=== PATIENT | female | born 1935 | race Caucasian/White ===

== ENCOUNTER 2025-02-25 15:11 | Emergency (ER) | payer MEDICARE, OTHER, SELFPAY ==
[2025-02-25] MEDS: Etomidate 20 MG/10 ML VIAL 10 MG IVPUSH (15:20)
[2025-02-25] MEDS: Rocuronium Bromide 50 MG/5 ML VIAL IVPUSH (15:20)
--- NOTE | 2025-02-25 15:27 | ECG_ITS ---
Test Reason : carduiac arrest Blood Pressure : */* mmHG Vent. Rate : 87 BPM Atrial Rate : * BPM P-R Int : * ms QRS Dur : 164 ms QT Int : 406 ms P-R-T Axes : * 102 -44 degrees QTcB Int : 488 ms Atrial fibrillation Right bundle branch block Cannot rule out Inferior infarct , age undetermined Abnormal ECG No previous ECGs available Referred By: Sabine Oh Electronically Signed By: JAUN RICO
[2025-02-25 15:53] LABS: Hemoglobin 12.6 g/dl (12.0-16.0); Mean Corpuscular Hemoglobin 26.8 pg (27.0-33.0); Mean Corpuscular Volume 89.2 fL (80.0-98.0); Mean Platelet Volume 9.8 fL (9.4-12.3); NRBC Pct Auto 0.3 /100WBC (0.0-0.2); Platelet Count 342 X10*3/uL (160-400); Red Blood Count 4.71 X10*6/uL (4.20-5.50); Red Cell Distribution Width 14.2 % (11.0-16.0)
[2025-02-25 15:56] LABS: VBG Base Excess -2.4 mmol/L; VBG HCO3 22 mmol/L (22-26); VBG pCO2 40 mmHg; VBG pH 7.35 (7.32-7.43); VBG pO2 47 mmHg
[2025-02-25 16:08] LABS: WBC ABN SCTR FOR CBC 1
[2025-02-25 16:18] LABS: Alanine Aminotransferase 33 U/L (0-31); Albumin Level 3.3 g/dL (3.5-5.0); Alkaline Phosphatase 91 U/L (39-117); Anion Gap 22 (12-20); Aspartate Amino Transferase 53 U/L (5-31); Bilirubin Direct 0.2 mg/dL (0.0-0.5); Bilirubin Total 0.5 mg/dL (0.0-1.0); Blood Urea Nitrogen 15 mg/dL (9-16); Calcium 8.8 mg/dL (8.4-10.2); Carbon Dioxide 24 mmol/L (22-29); Chloride 93 mmol/L (96-108); Estimated Glomerular Filt Rate 52; Glucose Random 298 mg/dL (60-115); Lipase 15 U/L (8-78); Magnesium 2.3 mg/dL (1.6-2.6); Potassium 3.5 mmol/L (3.3-5.1); Sodium 135 mmol/L (135-145)
[2025-02-25 16:21] LABS: Troponin-I High Sensitivity 29.5 ng/L (<3.5-17.0)
--- NOTE | 2025-02-25 16:22 | PC.NURSE ---
LATE ENTRY: REPORT FROM EMS: Pt was a witnessened cardiac arrest at home by . Per EMS reports pt has weak heart and many medical conditions, was having SOB and then collapsed in front of - called for EMS. First responders arrived with CPR in progress, 1 shock by AED. EMS did approx 35 mins of CPR, Placed IGEL, 2 EPI, IO in left humerus. EMS got ROSC (not sure exactly what time), started NS and Dopamine drip (unsure about how much they gave). 1513: EMS ARRIVED- ROSC, IGEL IN PLACE WITH BVM, STABLE VITALS PER EMS 1515: POC 252 1518: BP 111/91, HR 92, RR 20 1518: IV PLACED IN R AC 18G 1520 ETOMIDATE 10 MG IVP & KOMAL 50 MG IVP 1521:INTUBATED 7.5 ETT 21 CM AT LIP BY MD GONZALEZ 1523: OG 16FR PLACED BY , TO INTERMITTENT SUCTION 1524: 1 AMP OF BICARB IVP 1524 BP 54/37. HR 78 1524: NOREPI START 0.05 MCG/KG/MIN 1530: PROPOFOL STARTED 30 MCG/KG/MIN 1534: NOREP INCREASED TO 0.09 PER 1534: HR 38, SPO2 58%, RR 18 VIA VENT 1534: PULSES LOST, PEA, CPR STARTED 1535: EPI 1MG IVP 1537: PULSE CHECK, NO PULSE, PEA, CPR CONTINUED 1537: AMIO 150 BOLUS DRIP STARTED PER 1539: PULSE CHECK, NO PULSE, PEA, CPR CONTINUED 1540: EPI 1MG IVP, CALCIUM 1G IVP 1541: PULSE CHECK, NO PULSE, PEA, CPR 1543: NO PULSE, EVENT CALLED/EVENT BY MD GONZALEZ. FAMILY REQUESTED TO STOP.
[2025-02-25 16:27] LABS: B Type Natriuretic Peptide 665 pg/mL (<100); Venous Blood Gas Refer to POC result
[2025-02-25 16:29] LABS: Band Neutrophils Percent 1 % (3-5); Eosinophils Percent Manual 1 % (0-4); Lymphocytes Percent Manual 17 % (20-40); Metamyelocytes Percent 1 %; Monocytes Percent Manual 5 % (2-11); Neutrophils Percent Manual 75 % (45-73)
[2025-02-25 16:30] LABS: Platelet Estimate NORMAL (NORMAL); Platelet Morphology Comment NORMAL; RBC Morphology NORMAL
--- NOTE | 2025-02-25 16:30 | PC.NURSE ---
NOT CT CASE Organ bank called by Sindhu GARDNER.
[2025-02-25 16:31] LABS: Eosinophils Absolute Manual 0.2 X10*3/uL (0.0-0.4); Lymphocytes Absolute Manual 2.9 X10*3/uL (1.2-4.9); Metamyelocytes Absolute 0.2 X10*3/uL; Monocytes Absolute Manual 0.8 X10*3/uL (0.1-1.2); Neutrophils Absolute Manual 12.8 X10*3/uL (2.0-8.3); White Blood Count 16.8 X10*3/uL (4.8-10.8)
--- NOTE | 2025-02-25 16:31 | PC.NURSE ---
Pt cleaned and placed in hospital clothing. Tubes and wires removed. Pts belongings placed in bag. PT HAS SILVER RING ON LEFT RING FINGER. FAMILY IN ROOM AT THIS TIME
[2025-02-25 16:34] VITALS: BMI 32.1
--- NOTE | 2025-02-25 16:43 | PC.NURSE ---
PTS FAMILY TOOK HOME PTS BELONGINGS AND PTS RING THAT SHE WAS WEARING. FAMILY IS UNSURE OF HOME AT THIS TIME.
--- NOTE | 2025-02-25 16:55 | ED.CPR ---
HPI - CPR General Chief Complaint: Cardiac Arrest/CPR Stated Complaint: CARDIAC ARREST PER EMS Source: EMS Mode of arrival: EMS Limitations: altered mental status (ongoing CPR) History of Present Illness ED Provider: LISA PIÑA narrative: 89 yo female with PMH of CHF, COPD who was at home and c/o feeling short of breath then collapsed in front of her . Bystander CPR started. 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 concrete float maker had ROSC but briefly. ALS team arrived - 2 epi, no amio, IVF, IO L shoulder, ROSC on arrival to ED - total CPR 35 min prehospital. Unclear of CODE status on arrival no MOLST form present. 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: Yes Shock advised: Yes Number of shocks delivered: 1 Initial findings in the field: unresponsive, no pulse and PEA ROSC in the field: Yes (x2 but brief) Associated injuries: No Associated symptoms: shortness of breath Known history of: other (CHF/COPD) Treatments prior to arrival: BMV, other airway device (Igel), chest compressions, defibrillated shocks # (1) and epinephrine mgs # (2) Related Data Allergies Allergy/AdvReac Type Severity Reaction Status Date / Time No Known Allergies Allergy Unverified 08/13/20 15:14 Review of Systems Review of Systems: ROS unable to be obtained due to ongoing CPR [facility] Past Medical History Attestation statement: The following information was validated with the patient. Source: old records reviewed Medical History COPD (chronic obstructive pulmonary disease) CHF (congestive heart failure) Social History Social History (Updated 02/25/25 @ 16:58 by Sabine Oh DO) Patient Tobacco Use Status: Tobacco use Unknown Advance Directives: No Advance Directives Information Provided: No Physical Exam Vital Signs: Vital Signs: BMI result Body Mass Index 32.1 Appearance: ongoing CPR severe distress Eyes: Pupils equal, round and reactive to light. ENT: Pharynx normal. atraumatic, blue purple lips Neck: Normal inspection. Neck supple. CVS: PE on monitor initial irregular rhythm with RBBB Respiratory: Initial spontaneous respirations though agonal then loss of resp drive Abdomen: Soft and non-tender. Skin: Skin warm and cool. pale and dusky Extremities: No lower extremity edema. Neuro: unresponsive, no pupil reflex, ongoing CPR Medications Administered Generic Name Dose Route Start Last Admin Trade Name Tony PRN Reason Stop Dose Admin Amiodarone HCl 900 mg/ Sodium 518 mls @ 34.533 mls/hr 02/25/25 15:30 02/25/25 16:33 Chloride IVCONT Not Given .Q15H1M ELLIOTT Protocol 1 MG/MIN Discontinued Medications Generic Name Dose Route Start Last Admin Trade Name Tony PRN Reason Stop Dose Admin Etomidate 10 mg 02/25/25 15:28 02/25/25 15:20 Etomidate 20 Mg/10 Ml Vial IVPUSH 02/25/25 15:29 10 mg ONCE ONE Administration Rocuronium [place] 50 mg 02/25/25 15:26 02/25/25 15:20 Rocuronium [place] 50 Mg/5 Ml Vial IVPUSH 02/25/25 15:27 50 mg ONCE ONE Administration Medical Decision Making Medical Decision Making [facility] Narrative: 89 yo female with PMH of COPD/CHF collapsed in front of family had ROSC in field lost pulse, ROSC on arrival to ED then became bradycardic and went into PEA arrest - after 4 cycles with epi, levophed drip, intubation, amio drip she had no cardiac activity on US and no pulses. Family notes she would have wanted to be DNR/DNI though no MOLST present and they asked we hold resuscitative efforts - time of 1543 Differential Diagnosis Differential Diagnoses: The differential diagnosis associated with the presentation includes cardiac arrest Admission/Observation Consideration of admission/observation: Escalation of care including admission/observation considered time of 1543 Lab Data [facility] Lab Attestation statement: I reviewed the patient's lab results. 02/25/25 15:37 02/25/25 15:37 Labs: Lab Results 02/25/25 02/25/25 Range/Units 15:37 15:50 WBC 16.8 H (4.8-10.8) X10*3/uL RBC 4.71 (4.20-5.50) X10*6/uL Hgb 12.6 (12.0-16.0) g/dl Hct 42.0 (37.0-47.0) % MCV 89.2 (80.0-98.0) fL MCH 26.8 L (27.0-33.0) pg MCHC 30.0 L (31.0-35.0) g/dl RDW 14.2 (11.0-16.0) % Plt Count 342 (160-400) X10*3/uL MPV 9.8 (9.4-12.3) fL Immature Gran % (Auto) Cancelled Neut % (Auto) Cancelled Lymph % (Auto) Cancelled Boyd % (Auto) Cancelled Eos % (Auto) Cancelled Baso % (Auto) Cancelled Lymph # (Auto) Cancelled Boyd # (Auto) Cancelled Eos # (Auto) Cancelled Baso # (Auto) Cancelled Abs Immat Gran (auto) Cancelled Absolute Neuts (auto) Cancelled Absolute Nucleated RBC 0.050 H (0.0-0.012) X10*3/uL Nucleated RBC % (auto) 0.3 H (0.0-0.2) /100WBC Neutrophils % (Manual) 75 H (45-73) % Band Neutrophils % 1 L (3-5) % Lymphocytes % (Manual) 17 L (20-40) % Monocytes % (Manual) 5 (2-11) % Eosinophils % (Manual) 1 (0-4) % Metamyelocytes % 1 % Abs Neuts (Manual) 12.8 H (2.0-8.3) X10*3/uL Lymphocytes # (Manual) 2.9 (1.2-4.9) X10*3/uL Monocytes # (Manual) 0.8 (0.1-1.2) X10*3/uL Eosinophils # (Manual) 0.2 (0.0-0.4) X10*3/uL Metamyelocytes # 0.2 X10*3/uL Platelet Estimate NORMAL (NORMAL) Plt Morphology Comment NORMAL RBC Morphology NORMAL VBG pH 7.35 (7.32-7.43) VBG pCO2 40 mmHg VBG pO2 47 mmHg VBG HCO3 22 (22-26) mmol/L VBG O2 Saturation 73.0 % VBG Base Excess -2.4 mmol/L Sodium 135 (135-145) mmol/L Potassium 3.5 (3.3-5.1) mmol/L Chloride 93 L (96-108) mmol/L Carbon Dioxide 24 (22-29) mmol/L Anion Gap 22 H (12-20) BUN 15 (9-16) mg/dL Creatinine 1.00 (0.5-1.4) mg/dL Estim Creat Clear Calc TNP Estimated GFR 52 Random Glucose 298 H (60-115) mg/dL Calcium 8.8 (8.4-10.2) mg/dL Magnesium 2.3 (1.6-2.6) mg/dL Total Bilirubin 0.5 (0.0-1.0) mg/dL Direct Bilirubin 0.2 (0.0-0.5) mg/dL AST 53 H (5-31) U/L ALT 33 H (0-31) U/L Alkaline Phosphatase 91 (39-117) U/L Troponin I High Sens 29.5 H (<3.5-17.0) ng/L B-Natriuretic Peptide 665 H (<100) pg/mL Total Protein 6.0 L (6.5-8.0) g/dL Albumin 3.3 L (3.5-5.0) g/dL Lipase 15 (8-78) U/L Independent Interpretation I performed an independent interpretation of an: EKG Interpretation: Rate: 87 Rhythm: irregular [place]: rightwards RBBB ST T wave : deep t waves anterior leads and lateral leads ST depressions qTC: 488 prior studies: no obvious STEMI The study has been interpreted contemporaneously by me. . Procedures Procedure Narrative Procedure Narrative: bedside cardiac echo no cardiac activity noted pupils fixed no corneal reflex no response to pain no spontaneous breathing time of 1543 Critical Care Time Critical Care Time Critical Care Time: Yes Total Critical Care Time: 35 Attestation: management post ROSC, family discussion I attest to this time spent taking care of the patient Discharge Plan Discharge Clinical Impression: Cardiac arrest Patient Disposition: Date/Time: 02/25/25 15:43
--- OUTSIDE RECORDS SUMMARY | 2025-02-25 18:39 | XMS_ITS ---
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 Generated for Sunny barry/Eileen/eTransmitting on:?02/25/2025 06:38 PM EDT
--- OUTSIDE RECORDS SUMMARY | 2025-02-25 18:39 | XMS_ITS | Clinical Summary ---
Author Organization [facility] Address [address] [place] [address] Care Team Providers Care Snag Grinder Name Role Phone Unavailable Primary Care Provider Unavailabl e Allergies Active Allergy Reactions Criticality Noted Date Comments Granite Tar Extract 03/30/2018 Medications Medication Sig Dispensed Refills Start Date End Date Status Aspirin (ASPIR-81 PO) Take by mouth. 0 Active Tiotropium [place] Monohydrate (SPIRIVA HANDIHALER IN) Inhale into the lungs. 0 Active furosemide (LASIX) 20 MG tablet Take 20 mg by mouth 2 (two) times a day. 0 Active metoprolol succinate (TOPROL-XL) 24 hr tablet 25 mg Take by mouth daily. 0 Active spironolactone (ALDACTONE) tablet 25 mg Take 25 mg by mouth daily. 0 Active Umeclidinium-Vilanterol (ANORO ELLIPTA) 62.5-25 MCG/INH AEPB Inhale into the lungs. 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 Social History Tobacco Use Types Packs/Day Years Used Date Smoking Tobacco: Never Assessed Sex and Gender Information Value Date Recorded Sex Assigned at Not on file Gender Identity Not on file Sexual Orientation Not on file Last Filed Vital Signs Vital Sign Reading Time Taken Comments Blood Pressure 155/72 03/29/2019 1:52 PM EDT Pulse 85 03/29/2019 1:52 PM EDT Temperature - - Respiratory Rate - - Oxygen Saturation 93% 03/29/2019 1:52 PM EDT Inhaled Oxygen Concentration - - Weight 96.6 kg (213 lb) 03/29/2019 1:52 PM EDT Height 167.6 cm (5' 6 ) 03/29/2019 1:52 PM EDT Body Mass Index 34.38 03/29/2019 1:52 PM EDT Plan of Treatment Health Maintenance Due Date Last Done Comments COVID-19 Vaccine (#1) 1941 Depression Screening 1948 Preventative Health Evaluation 1954 Shingrix-Zoster Vaccine (1 o f 2) 1955 Fall Risk Assessment 2001 Osteoporosis Screening (DEXA Scan) 2001 DTap / Tdap / Td (1 - Tdap) 08/07/201007/28, 07/03/2000 RSV Adult > 60+ Yrs or (1 - 1-dose 75+ series) 2011 Influenza Vaccine (#1) 2024 08/11/2009 Pneumococcal Vaccine Completed 08/11/2015, 07/14/2008 Hepatitis B Vaccines Aged Out No long er eligible based on patient's age to complete this topic RSV Ped < 20 months Aged Out No longe r eligible based on patient's age to complete this topic
--- OUTSIDE RECORDS SUMMARY | 2025-02-25 18:39 | XMS_ITS | Data Portability ---
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 Plan of Treatment Reminders Order Date Submit Date Provider Last Modified By Organization Details Last Modified Time Details Appointments None recorde d. Lab lipid panel, serum 2017 018 abolcun Not available 9 10:53:31 CMP, serum or plasma 2017 018 abolcun Not available 9 10:53:31 HbA1c (hemogl obin A1c), blood 2017 018 abolcun Not available 9 10:53:31 TSH + T4, serum 2017 018 abolcun Not available 9 10:53:31 vitamin D, 25-hydr oxy, total, serum 2017 018 abolcun Not available 9 10:53:31 HbA1c (hemogl obin A1c), blood 2017 018 MELOYD Not available 8 21:26:14 BMP, serum or plasma 2017 018 MELODY Not available 8 20:34:49 microal bumin, urine 2017 018 MELODY Not available 8 20:11:28 CBC w/ diff 2017 018 abolcun Not available 8 09:52:19 BMP, serum or plasma 2016 017 MELODY Not available 7 23:27:11 BMP, serum or plasma 2015 016 MELODY Not available 6 20:34:20 Referral physica l therapi st referra l - At risk for falling 2017 018 [email or web address] [facility], [address], [place], [address], 8 15:39:25 nutriti onist/d ietitia n referra l 2017 018 [email or web address] Not available 8 15:39:01 pulmono logist referra l - pt has stable COPD/ stable oximetr y over past few years. I encoura ged pt to get flu shots but she decline s today 2017 018 rohith Lewis MD, [address] [place], [address], 8 11:10:16 physiat ry referra l - Pt prefers to see physiat ry for left shoulde r pain/ radiate s to left hand. Pt may need injecti on and possibl e MRI to eval patholo gy. Pt is very relucta nt to conside r surgery . 2016 017 rohith Jarrett MD, [address] [place], [address], 7 10:18:10 pulmono logist referra l - pt has mild COPD/ control led on Spiriva . Most likely pt will need to do Pulm Rehab/p t needs recheck of her PFTs and prob repeat CXR 2016 017 [email or web address] Ross Lewis MD, [address] [facility], [place], [address], 7 17:06:41 physiat ry referra l - pt has radiati ng pain from knee to hip/lum bar area and numbnes s down left thigh. pt could not tolerat e MRI due to pain. Not sure how to eval for radicul opathy 2015 016 [id number] Fermin Jarrett MD, [address] [place], [address], 6 04:31:53 renal consult - resista nt htn, hyponat remia 2015 016 [facility], [address], [address], [place], [address], 6 16:21:21 Procedures None recorde d. Surgeries None recorde d. Imaging US, thyroid - Dominan t L> thyroid nodule about 3 cm f/u ultraso und. 2017 018 [facility] ([facility]), [address], [place], [address], 8 18:18:40 US, abdomin al aorta - 3.[address] from 2013. 2017 018 [facility] ([facility]), [address], [place], [address], 8 14:41:01 Medication Orders Spiriva with HandiHa ler 18 mcg and inhalat ion capsule s 2017 018 INTERFACE [facility], [facility], [place], [address], 8 13:22:04 ProAir HFA 90 mcg/act uation aerosol inhaler [address] [id number], [address] [place] [address], [place], [id number], 0 15:29:37 diclofe nac sodium 75 mg tablet, delayed release 2015 016 [email or web address] [id number], [address] [facility] [place], [address], 7 13:02:37 metopro lol succina te ER 25 mg tablet, extende d release 24 hr 2015 016 [id number] [facility], [address] [place] [address], [address], 6 04:31:53 metopro lol tartrat e 25 mg tablet 2015 016 [email or web address] [facility] #[id number], [address] [facility] [place], [address], 7 13:21:54 Lasix 20 mg tablet 2015 016 [email or web address] [facility], [address] [place] [address], [address], 9 09:22:02 candesa rtan 32 mg tablet 2015 016 [email or web address], [address] [place] [address], [address], 7 13:02:27 Patient Targets Encounter Date Encounter Id Patient Goals Patient Target Last Modified By Organization Details Last Modified Time 07/11/2018 [id number] [facility] goal of Blood Pressure 140 / 90 Not available Not available Not available manager terminal goal of Exercise level Not available Not available Not available [facility] goal of Tobacco Smoking Status Not available Not available Not available [facility] goal of Excess Body Weight Loss % 5 Not available Not available Not available Pt advised and agrees to eat a low salt low fat diet; to do moderate exercise (such as walking) 150 minutes per week; to limit alcohol intake (goal of 2 drinks per day or less for men or 1 for woman). and to monitor dietary sodium. Will monitor home blood pressures and bring readings to appointments. Patient preferences and goals incorporated in plan and updated/modifie d as needed to reflect progress toward goal.Pt advised and agrees to work on self-monitoring behaviors; begin an appropriate diet for weight loss (such as a low carbohydrate diet), to do moderate exercise (such as walking) for approximately 150 minutes per week; and to identify desirable and timely rewards that will reinforce achievement of specific weight loss goals. Not available 07/11/2018 14:37:53 Patient Instructions Encounter Date Encounter Id Patient Instructions Last Modified By Organization Details Last Modified Time 07/21/2016 [id number] rec. laxaclear (generic for miralax at [employer] - similar at 's) 1/2 - 1 scoop in 8 oz. of any fluid 1-2x/daily. ??rec. eat less bananas and drink more water. ??use senna prn. stop aleve. ??rather take tylenol 500mg 2 tabs 3x/day [email or web address] Not available 07/21/2016 19:17:41 I have reviewed the note and agree with the assessment and plan of care. [email or web address] Not available 07/21/2016 19:17:41 08/18/2016 [id number] Medications (OTC, herbal therapies, supplements) reviewed and reconciled with patient and or caregiver, including potential side effects, drug interactions, instructions, and the consequences of not taking medication. Reviewed potential barriers to medication adherence, such as side effects from medication or cost of medication. [email or web address] Not available 08/18/2016 12:02:27 07/11/2017 [id number] preventing falls: care instructions [email or web address] Not available 07/14/2017 15:02:21 fair control of HTN. BP not at goal, continue current medication regimen. Low NA diet, regular exercise and weight loss encouraged. [email or web address] Not available 07/11/2017 13:18:26 01/09/2018 [id number] learning about copd and how to prevent lung infections mdalessandro Not available 01/09/2018 13:29:43 07/11/2018 [id number] prediabetes: care instructions Not available 07/11/2018 13:57:58 preventing falls: care instructions Not available 07/11/2018 13:22:02 medicare preventive services guide (female 74yrs and under) Not available 07/11/2018 13:22:02 starting a weight loss plan: care instructions clarence Not available 07/11/2018 15:06:18 Nutrition Referral and Weight Management Follow-up Information clarence Not available 07/11/2018 15:06:18 I have reviewed the note and agree with the assessment and plan of care. 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 pt could not tolerate MRI due to pain. Not sure how to eval for radiculopathy Referring Physician: Nabil Umana, Internal Medicine, Encounter Date: 08/18/2016 Physiatry Referral for Shoul frank joint pain Pt prefers to see physiatry for left shoulder pain/ radiates to left hand. Pt may need injection and possible MRI to eval pathology. Pt is very reluctant to consider surgery. Referring Physician: Nabil Umana, Internal Medicine, Encounter Date: 07/11/2017 Open Hearth Worker Referral for C hronic obstructive pulmonary disease pt has mild COPD/ controlled on Spiriva. Most likely pt will need to do Pulm Rehab/pt needs recheck of her PFTs and prob repeat CXR Referring Physician: Nabil Umana, Internal Medicine, Encounter Date: 07/11/2017 Open Hearth Worker Referral for C hronic obstructive pulmonary disease pt has stable COPD/ stable oximetry over past few years. I encouraged pt to get flu shots but she declines today Referring Physician: Nabil Umana, Internal Medicine, Encounter Date: 01/09/2018 Physical Therapist Referral for Adult health examination At risk for falling Referring Physician: Beverly Hardin, Internal Medicine, Encounter Date: 07/11/2018 Consultant Intern/dietitian Refer ral for Body mass index 30+ - obesity Referring Physician: Beverly Hardin, Internal Medicine, Encounter Date: 07/11/2018 Results Created Date Observation Date Name Description Value Unit Range Abnormal Flag Note LastModifiedBy Organization Detail LastModifiedTime 07/14/2007/14/2016 BMP, serum or plasm a glucose 98 mg/dL (70-99 ) Not Available [facility] (Centralized Electronic Ordering - All Locations) Patient Can Go To The Location Of Their Choice, 07/14/2016 20:30:39 07/14/2007/14/2016 BMP, serum or plasm a BUN 10 mg/dL (8-23) Not Available [facility] (Centralized Electronic Ordering - All Locations) Patient Can Go To The Location Of Their Choice, 07/14/2016 20:30:39 07/14/2007/14/2016 BMP, serum or plasm a creatinine 0.8 mg/dL (0.5-1 .0) Not Available [facility] (Centralized Electronic Ordering - All Locations) Patient Can Go To The Location Of Their Choice, 07/14/2016 20:30:39 07/14/2007/14/2016 BMP, serum or plasm a sodium 127 mmol/ L (133-1 45) low Not Available [facility] (Centralized Electronic Ordering - All Locations) Patient Can Go To The Location Of Their Choice, 07/14/2016 20:30:39 07/14/2007/14/2016 BMP, serum or plasm a potassium 5.0 mmol/ L (3.6-5 .2) Not Available [facility] (Centralized Electronic Ordering - All Locations) Patient Can Go To The Location Of Their Choice, 07/14/2016 20:30:39 07/14/2007/14/2016 BMP, serum or plasm a chloride 87 mmol/ L (98-10 7) low Not Available [facility] (Centralized Electronic Ordering - All Locations) Patient Can Go To The Location Of Their Choice, 07/14/2016 20:30:39 07/14/2007/14/2016 BMP, serum or plasm a bicarbonate 26 mmol/ L (22-29 ) Not Available [facility] (Centralized Electronic Ordering - All Locations) Patient Can Go To The Location Of Their Choice, 07/14/2016 20:30:39 07/14/20 16 07/14/2016 BMP, serum or plasm a anion gap 14 (4-17) Not Available [facility] (Centralized Electronic Ordering - All Locations) Patient Can Go To The Location Of Their Choice, 07/14/2016 20:30:39 07/14/20 16 07/14/2016 BMP, serum or plasm a calcium 9.6 mg/dL (8.6-1 0.5) Not Available [facility] (Centralized Electronic Ordering - All Locations) Patient Can Go To The Location Of Their Choice, 07/14/2016 20:30:39 07/14/20 16 07/14/2016 BMP, serum or plasm a est GFR non 70 mL/mi n/1.7 3_M2 Effec tive Augus t 2015, [facility] have locke ed the equat ion used to calcu late creat inine based estim ated glome rular filtr ation rate (eGFR ) from the Modif icati on of Diet in Renal Disea se (MDRD ) to the Chron ic Kidne y Disea se Epide miolo gy Colla borat ion (CKD- EPI). With the use of CKD-E PI equat ion, eGFR value s over 60 mL/mi n/1.7 3 m2 are repor ruby and eGFR is calcu lated for patie nts > EQ 18 years old. The CKD-E PI creat inine equat ion has not been valid ated in child katelyn (<18 years ), pregn ant women , in some racia l or ethni c subgr oups other than Cauca sians and Afric an Ameri cans. Not Available [facility] (Centralized Electronic Ordering - All Locations) Patient Can Go To The Location Of Their Choice, 07/14/2016 20:30:39 07/14/2007/14/2016 BMP, serum or plasm a est GFR 81 mL/mi n/1.7 3_M2 Effec tive Augus t 2015, [facility], [facility] have locke ed the equat ion used to calcu late creat inine based estim ated glome ednar filtr ation rate (eGFR ) from the Modif icati on of Diet in Renal Disea se (MDRD ) to the Chron ic Kidne y Disea se Epide miolo gy Colla borat ion (CKD- EPI). With the use of CKD-E PI equat ion, eGFR value s over 60 mL/mi n/1.7 3 m2 are repor ruby and eGFR is calcu lated for patie nts > EQ 18 years old. The CKD-E PI creat inine equat ion has not been valid ated in child katelyn (<18 years ), pregn ant women , in some racia l or ethni c subgr oups other than Cauca sians and Afric an Ameri cans. Not Available [facility] (Centralized Electronic Ordering - All Locations) Patient Can Go To The Location Of Their Choice, 07/14/2016 20:30:39 07/21/2007/21/2016 BMP, serum or plasm a glucose 94 mg/dL (70-99 ) Not Available [facility] (Centralized Electronic Ordering - All Locations) Patient Can Go To The Location Of Their Choice, 07/21/2016 20:34:20 07/21/2007/21/2016 BMP, serum or plasm a BUN 12 mg/dL (8-23) Not Available [facility] (Centralized Electronic Ordering - All Locations) Patient Can Go To The Location Of Their Choice, 07/21/2016 20:34:20 07/21/2007/21/2016 BMP, serum or plasm a creatinine 0.8 mg/dL (0.5-1 .0) Not Available [facility] (Centralized Electronic Ordering - All Locations) Patient Can Go To The Location Of Their Choice, 07/21/2016 20:34:20 07/21/2007/21/2016 BMP, serum or plasm a sodium 133 mmol/ L (133-1 45) Not Available [facility] (Centralized Electronic Ordering - All Locations) Patient Can Go To The Location Of Their Choice, 07/21/2016 20:34:20 07/21/2007/21/2016 BMP, serum or plasm a potassium 5.3 mmol/ L (3.6-5 .2) high Not Available [facility] (Centralized Electronic Ordering - All Locations) Patient Can Go To The Location Of Their Choice, 07/21/2016 20:34:20 07/21/2007/21/2016 BMP, serum or plasm a chloride 93 mmol/ L (98-10 7) low Not Available [facility] (Centralized Electronic Ordering - All Locations) Patient Can Go To The Location Of Their Choice, 07/21/2016 20:34:20 07/21/2007/21/2016 BMP, serum or plasm a bicarbonate 26 mmol/ L (22-29 ) Not Available [facility] (Centralized Electronic Ordering - All Locations) Patient Can Go To The Location Of Their Choice, 07/21/2016 20:34:20 07/21/2007/21/2016 BMP, serum or plasm a anion gap 14 (4-17) Not Available [facility] (Centralized Electronic Ordering - All Locations) Patient Can Go To The Location Of Their Choice, 07/21/2016 20:34:20 07/21/2007/21/2016 BMP, serum or plasm a calcium 9.5 mg/dL (8.6-1 0.5) Not Available [facility] (Centralized Electronic Ordering - All Locations) Patient Can Go To The Location Of Their Choice, 07/21/2016 20:34:20 07/21/2007/21/2016 BMP, serum or plasm a est GFR non 70 mL/mi n/1.7 3_M2 Effec tive Augus t 2015, [facility], [facility] and [place] have locke ed the equat ion used to calcu late creat inine based estim ated glome rular filtr ation rate (eGFR ) from the Modif icati on of Diet in Renal Disea se (MDRD ) to the Chron ic Kidne y Disea se Epide miolo gy Colla borat ion (CKD- EPI). With the use of CKD-E PI equat ion, eGFR value s over 60 mL/mi n/1.7 3 m2 are repor ruby and eGFR is calcu lated for patie nts > EQ 18 years old. The CKD-E PI creat inine equat ion has not been valid ated in child katelyn (<18 years ), pregn ant women , in some racia l or ethni c subgr oups other than Cauca sians and Afric an Ameri cans. Not Available [facility] (Centralized Electronic Ordering - All Locations) Patient Can Go To The Location Of Their Choice, 07/21/2016 20:34:20 07/21/20 16 07/21/2016 BMP, serum or plasm a est GFR 81 mL/mi n/1.7 3_M2 Effec tive Augus t 2015, [facility], [facility] have locke ed the equat ion used to calcu late creat inine based estim ated glome rular filtr ation rate (eGFR ) from the Modif icati on of Diet in Renal Disea se (MDRD ) to the Chron ic Kidne y Disea se Epide miolo gy Colla borat ion (CKD- EPI). With the use of CKD-E PI equat ion, eGFR value s over 60 mL/mi n/1.7 3 m2 are repor ruby and eGFR is calcu lated for patie nts > EQ 18 years old. The CKD-E PI creat inine equat ion has not been valid ated in child katelyn (<18 years ), pregn ant women , in some racia l or ethni c subgr oups other than Cauca sians and Afric an Ameri cans. Not Available [facility] (Centralized Electronic Ordering - All Locations) Patient Can Go To The Location Of Their Choice, 07/21/2016 20:34:20 07/11/2007/11/2017 BMP, serum or plasm a glucose 104 mg/dL (70-99 ) high Not Available [facility] (Centralized Electronic Ordering - All Locations) Patient Can Go To The Location Of Their Choice, 07/11/2017 23:27:11 07/11/2007/11/2017 BMP, serum or plasm a BUN 10 mg/dL (8-23) Not Available [facility] (Centralized Electronic Ordering - All Locations) Patient Can Go To The Location Of Their Choice, 07/11/2017 23:27:11 07/11/2007/11/2017 BMP, serum or plasm a creatinine 0.8 mg/dL (0.5-1 .0) Not Available [facility] (Centralized Electronic Ordering - All Locations) Patient Can Go To The Location Of Their Choice, 07/11/2017 23:27:07/11/2007/11/2017 BMP, serum or plasm a sodium 137 mmol/ L (133-1 45) Not Available [facility] (Centralized Electronic Ordering - All Locations) Patient Can Go To The Location Of Their Choice, 07/11/2017 23:27:07/11/2007/11/2017 BMP, serum or plasm a potassium 4.9 mmol/ L (3.6-5 .2) Not Available [facility] (Centralized Electronic Ordering - All Locations) Patient Can Go To The Location Of Their Choice, 07/11/2017 23:27:07/11/2007/11/2017 BMP, serum or plasm a chloride 95 mmol/ L (98-10 7) low Not Available [facility] (Centralized Electronic Ordering - All Locations) Patient Can Go To The Location Of Their Choice, 07/11/2017 23:27:07/11/2007/11/2017 BMP, serum or plasm a bicarbonate 26 mmol/ L (22-29 ) Not Available [facility] (Centralized Electronic Ordering - All Locations) Patient Can Go To The Location Of Their Choice, 07/11/2017 23:27:07/11/2007/11/2017 BMP, serum or plasm a anion gap 16 (4-17) Not Available [facility] (Centralized Electronic Ordering - All Locations) Patient Can Go To The Location Of Their Choice, 07/11/2017 23:27:07/11/2007/11/2017 BMP, serum or plasm a calcium 9.5 mg/dL (8.6-1 0.5) Not Available [facility] (Centralized Electronic Ordering - All Locations) Patient Can Go To The Location Of Their Choice, 07/11/2017 23:27:07/11/2007/11/2017 BMP, serum or plasm a est GFR non 70 mL/mi n/1.7 3_M2 The CKD-E PI creat inine equat ion has not been valid ated in child katelyn (<18 years ), pregn ant women , in some racia l or ethni c subgr oups other than Cauca sians and Afric an Ameri cans. Not Available [facility] (Centralized Electronic Ordering - All Locations) Patient Can Go To The Location Of Their Choice, 07/11/2017 23:27:11 07/11/20 17 07/11/2017 BMP, serum or plasm a est GFR 81 mL/mi n/1.7 3_M2 The CKD-E PI creat inine equat ion has not been valid ated in child katelyn (<18 years ), pregn ant women , in some racia l or ethni c subgr oups other than Cauca sians and Afric an Ameri cans. Not Available [facility] (Centralized Electronic Ordering - All Locations) Patient Can Go To The Location Of Their Choice, 07/11/2017 23:27:11 01/31/20 18 01/30/2018 CBC w/ auto diff WBC 8.8 K/mm3 (4.0-1 1.0) Not Available [facility] (Centralized Electronic Ordering - All Locations) Patient Can Go To The Location Of Their Choice, [id number] 01/30/2018 19:27:08 01/31/20 18 01/30/2018 CBC w/ auto diff RBC 5.16 M/mm3 (4.20- 5.40) Not Available [facility] (Centralized Electronic Ordering - All Locations) Patient Can Go To The Location Of Their Choice, [id number] 01/30/2018 19:27:08 01/31/20 18 01/30/2018 CBC w/ auto diff HGB 14.7 gm/dL (12.0- 16.0) Not Available [facility] (Centralized Electronic Ordering - All Locations) Patient Can Go To The Location Of Their Choice, [id number] 01/30/2018 19:27:08 01/31/20 18 01/30/2018 CBC w/ auto diff HCT 47.1 % (37.0- 47.0) high Not Available [facility] (Centralized Electronic Ordering - All Locations) Patient Can Go To The Location Of Their Choice, [id number] 01/30/2018 19:27:08 01/31/20 18 01/30/2018 CBC w/ auto diff MCV 91.3 fL (80.0- 100.0) Not Available [facility] (Centralized Electronic Ordering - All Locations) Patient Can Go To The Location Of Their Choice, 01/30/2018 19:27:08 01/31/2001/30/2018 CBC w/ auto diff MCH 28.5 pg (27.0- 34.0) Not Available [facility] (Centralized Electronic Ordering - All Locations) Patient Can Go To The Location Of Their Choice, 01/30/2018 19:27:01/31/2001/30/2018 CBC w/ auto diff MCHC 31.2 g/dL (33.0- 37.0) low Not Available [facility] (Centralized Electronic Ordering - All Locations) Patient Can Go To The Location Of Their Choice, 01/30/2018 19:27:01/31/2001/30/2018 CBC w/ auto diff plt 381 K/mm3 (150-4 60) Not Available [facility] (Centralized Electronic Ordering - All Locations) Patient Can Go To The Location Of Their Choice, 01/30/2018 19:27:01/31/2001/30/2018 CBC w/ auto diff RDW-SD 45.0 fL (<47.0 ) Not Available [facility] (Centralized Electronic Ordering - All Locations) Patient Can Go To The Location Of Their Choice, 01/30/2018 19:27:01/31/2001/30/2018 CBC w/ auto diff MPV 9.9 fL (9.4-1 2.4) Not Available [facility] (Centralized Electronic Ordering - All Locations) Patient Can Go To The Location Of Their Choice, 01/30/2018 19:27:01/31/2001/30/2018 CBC w/ auto diff automated NRBC 0.0 #/100 _WBC' s Not Available [facility] (Centralized Electronic Ordering - All Locations) Patient Can Go To The Location Of Their Choice, 01/30/2018 19:27:01/31/2001/30/2018 CBC w/ auto diff abs. NRBC 0.0 K/mm3 Not Available [facility] (Centralized Electronic Ordering - All Locations) Patient Can Go To The Location Of Their Choice, 01/30/2018 19:27:08 01/31/2001/30/2018 CBC w/ auto diff neut # 4.5 K/mm3 (1.3-7 .0) Not Available [facility] (Centralized Electronic Ordering - All Locations) Patient Can Go To The Location Of Their Choice, 01/30/2018 19:27:08 01/31/2001/30/2018 CBC w/ auto diff lymph # 3.3 K/mm3 (0.8-3 .1) high Not Available [facility] (Centralized Electronic Ordering - All Locations) Patient Can Go To The Location Of Their Choice, 01/30/2018 19:27:08 01/31/2001/30/2018 CBC w/ auto diff mono# 0.7 K/mm3 (0.4-0 .9) Not Available [facility] (Centralized Electronic Ordering - All Locations) Patient Can Go To The Location Of Their Choice, 01/30/2018 19:27:08 01/31/2001/30/2018 CBC w/ auto diff eo # 0.2 K/mm3 (0.0-0 .4) Not Available [facility] (Centralized Electronic Ordering - All Locations) Patient Can Go To The Location Of Their Choice, 01/30/2018 19:27:08 01/31/2001/30/2018 CBC w/ auto diff baso # 0.1 K/mm3 (0.0-0 .1) Not Available [facility] (Centralized Electronic Ordering - All Locations) Patient Can Go To The Location Of Their Choice, 01/30/2018 19:27:08 01/31/2001/30/2018 CBC w/ auto diff abs. imm gran 0.0 K/mm3 Not Available [facility] (Centralized Electronic Ordering - All Locations) Patient Can Go To The Location Of Their Choice, 01/30/2018 19:27:08 01/31/2001/30/2018 CBC w/ auto diff neut 51.3 % (44-76 ) Not Available [facility] (Centralized Electronic Ordering - All Locations) Patient Can Go To The Location Of Their Choice, 01/30/2018 19:27:08 01/31/2001/30/2018 CBC w/ auto diff lymph 37.7 % (15-43 ) Not Available [facility] (Centralized Electronic Ordering - All Locations) Patient Can Go To The Location Of Their Choice, 01/30/2018 19:27:08 01/31/20 18 01/30/2018 CBC w/ auto diff monocyte 7.9 % (4.5-1 0.5) Not Available [facility] (Centralized Electronic Ordering - All Locations) Patient Can Go To The Location Of Their Choice, [id number] 01/30/2018 19:27:08 01/31/20 18 01/30/2018 CBC w/ auto diff eo 2.2 % (0-6) Not Available [facility] (Centralized Electronic Ordering - All Locations) Patient Can Go To The Location Of Their Choice, [id number] 01/30/2018 19:27:08 01/31/20 18 01/30/2018 CBC w/ auto diff baso 0.7 % (0-2) Not Available [facility] (Centralized Electronic Ordering - All Locations) Patient Can Go To The Location Of Their Choice, [id number] 01/30/2018 19:27:08 01/31/20 18 01/30/2018 CBC w/ auto diff imm gran 0.2 % (0.0-0 .6) Not Available [facility] (Centralized Electronic Ordering - All Locations) Patient Can Go To The Location Of Their Choice, [id number] 01/30/2018 19:27:08 01/31/20 18 01/30/2018 micro album in, urine micro-albumi n <6.0 mg/L (0-20) Not Available [facility] (Centralized Electronic Ordering - All Locations) Patient Can Go To The Location Of Their Choice, 01/30/2018 20:11:28 01/31/20 18 01/30/2018 micro album in, urine malb/creat ratio <10.4 mg/gm (0-20) Micro album in less than detec tion limit , ratio estim ated using micro album in equal to 6.0 mg/L. Not Available [facility] (Centralized Electronic Ordering - All Locations) Patient Can Go To The Location Of Their Choice, 01/30/2018 20:11:28 01/31/20 18 01/30/2018 micro album in, urine urine creat for micro albumin 57.5 mg/dL Not Available [facility] (Centralized Electronic Ordering - All Locations) Patient Can Go To The Location Of Their Choice, [id number] 01/30/2018 20:11:28 01/31/2001/30/2018 BMP, serum or plasm a glucose 108 mg/dL (70-99 ) high Not Available [facility] (Centralized Electronic Ordering - All Locations) Patient Can Go To The Location Of Their Choice, 01/30/2018 20:34:49 01/31/2001/30/2018 BMP, serum or plasm a BUN 11 mg/dL (8-23) Not Available [facility] (Centralized Electronic Ordering - All Locations) Patient Can Go To The Location Of Their Choice, 01/30/2018 20:34:49 01/31/2001/30/2018 BMP, serum or plasm a creatinine 0.8 mg/dL (0.5-1 .0) Not Available [facility] (Centralized Electronic Ordering - All Locations) Patient Can Go To The Location Of Their Choice, 01/30/2018 20:34:49 01/31/2001/30/2018 BMP, serum or plasm a sodium 137 mmol/ L (133-1 45) Not Available [facility] (Centralized Electronic Ordering - All Locations) Patient Can Go To The Location Of Their Choice, 01/30/2018 20:34:49 01/31/2001/30/2018 BMP, serum or plasm a potassium 4.6 mmol/ L (3.6-5 .2) Not Available [facility] (Centralized Electronic Ordering - All Locations) Patient Can Go To The Location Of Their Choice, 01/30/2018 20:34:49 01/31/2001/30/2018 BMP, serum or plasm a chloride 95 mmol/ L (98-10 7) low Not Available [facility] (Centralized Electronic Ordering - All Locations) Patient Can Go To The Location Of Their Choice, 01/30/2018 20:34:49 01/31/2001/30/2018 BMP, serum or plasm a bicarbonate 28 mmol/ L (22-29 ) Not Available [facility] (Centralized Electronic Ordering - All Locations) Patient Can Go To The Location Of Their Choice, 01/30/2018 20:34:49 01/31/2001/30/2018 BMP, serum or plasm a anion gap 14 (4-17) Not Available [facility] (Centralized Electronic Ordering - All Locations) Patient Can Go To The Location Of Their Choice, 01/30/2018 20:34:49 01/31/20 18 01/30/2018 BMP, serum or plasm a calcium 9.5 mg/dL (8.6-1 0.5) Not Available [facility] (Centralized Electronic Ordering - All Locations) Patient Can Go To The Location Of Their Choice, [id number] 01/30/2018 20:34:49 01/31/20 18 01/30/2018 BMP, serum or plasm a est GFR non 69 mL/mi n/1.7 3_M2 Creat inine based estim ated glome rular filtr ation rate (eGFR ) is calcu lated using the Chron ic Kidne y Disea se Epide miolo gy Colla borat ion (CKD- EPI). The CKD-E PI creat inine equat ion has not been valid ated in child katelyn (<18 years ), pregn ant women or in some racia l or ethni c subgr oups other than Cauca sians and Afric an Ameri cans. Not Available [facility] (Centralized Electronic Ordering - All Locations) Patient Can Go To The Location Of Their Choice, [id number] 01/30/2018 20:34:49 01/31/20 18 01/30/2018 BMP, serum or plasm a est GFR 80 mL/mi n/1.7 3_M2 Creat inine based estim ated glome rular filtr ation rate (eGFR ) is calcu lated using the Chron ic Kidne y Disea se Epide miolo gy Colla borat ion (CKD- EPI). The CKD-E PI creat inine equat ion has not been valid ated in child katelyn (<18 years ), pregn ant women or in some racia l or ethni c subgr oups other than Cauca sians and Afric an Ameri cans. Not Available [facility] (Centralized Electronic Ordering - All Locations) Patient Can Go To The Location Of Their Choice, [id number] 01/30/2018 20:34:49 01/31/20 18 01/30/2018 HbA1c (hemo globi n A1c), blood hemoglobin A1C 6.2 % (4-6) high HEMOG LOBIN A1C(% ) GLUCO SE CONTR OL INDEX <6% EXCEL LENT 6-7% VERY GOOD 7-8% GOOD 8-10% FAIR >10% POOR Hemog lobin (Hb) A1c testi ng is perfo rmed by Dana Emy- quant immun oassa y. Any cause of short ened eryth rocyt e survi norm will reduc e expos ure of eryth rocyt es to gluco se with a conse quent decre ase in Hb A1c (%). Not Available [facility] (Centralized Electronic Ordering - All Locations) Patient Can Go To The Location Of Their Choice, [id number] 01/30/2018 21:26:14 07/05/20 16 07/04/2016 MRI, lumba r spine , w/wo contr ast No observ ation record ed. [facility] [address], [place], [address], 07/05/2016 10:02:40 10/10/20 16 10/07/2016 MRI, lumba r spine , w/wo contr ast No observ ation record ed. [facility] ([facility]) [address] [place], [address], 10/19/2016 13:38:26 10/12/20 16 10/07/2016 MRI, lumba r spine , w/wo contr ast No observ ation record ed. [facility] ([facility]) [address] [place], [address], 10/19/2016 13:34:30 07/19/20 18 07/19/2018 US, abdom inal aorta US Aorta INDICA TION/C LINICA L QUESTI ON: SCREEN ING AAA. Other: . Patitony t Age 82 years COMPAR RIDGE: CT examin ation dated June 21, 2016 FINDIN GS: Examin ation techni marcus diffic ult due to patien t's body habitu s. AP diamet ers of the abdomi nal aorta and iliac arteri es as measur ed in the sagitt al plane: Proxim al aorta: 2.5 cm Mid aorta: 2.1 cm Distal aorta: 3.1 cm Right common iliac artery : 1.6 cm Left common iliac artery : 1.1 cm IMPRES LAURA: 1. 3.1 cm aneury sm distal abdomi nal aorta. Allowi ng for differ ences betwee n modali ties this is simila r to the CT exam of 016. 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 Patien t age 82 years. COMPAR RIDGE: Report of thyroi d ultras ound perfor med by by Dr. Luna on June 11, 2012 review ed; hardco py unavai lable. Chest CT dated February 13, 2018. FINDIN GS: RIGHT THYROI D LOBE: 2.4 x 1.3 x 5.2 cm, volume approx imatel y 9 cc. Hetero geneou s parenc hymal echoge nicity . Right lobe nodule : * Solid or almost comple tely solid (2 points ), isoech oic (1 point) , taller -than- wide (3 points ), ill-de fined (0 points ) nodule with none echoge milton foci or large comet- tail artifa cts (0 points ), locate d in the mid right lobe of the thyroi d measur ing 0.7 cm in the maximu m diamet er totals 6 points , consis tent with ACR TI-RAD S Catego ry TR4 LEFT THYROI D LOBE: 2.4 x 1.7 x 4.8 cm, volume approx imatel y 10 cc. Hetero geneou s parenc hymal echoge nicity . Left lobe nodule s: * Solid or almost comple tely solid (2 points ), isoech oic (1 point) , not taller -than- wide (0 points ), ill-de fined (0 points ) nodule with none echoge milton foci or large comet- tail artifa cts (0 points ), locate d in the superi or left lobe of the thyroi d measur ing 2.2 cm in the maximu m diamet er totals 3 points , consis tent with ACR TI-RAD S Catego ry TR3. * Solid or almost comple tely solid (2 points ), not taller -than- wide (0 points ), ill-de fined (0 points ) nodule which the echoge nicity cannot be determ ined (1 point) , with none echoge milton foci or large comet- tail artifa cts (0 points ), locate d in the inferi or left lobe of the thyroi d measur ing 1.7 cm in the maximu m diamet er totals 3 points , consis tent with ACR TI-RAD S Catego ry TR3 Please note that on the chest CT in January 2018, there is a 2.7 cm densel y calcif ied lesion which is contig uous with the roving department end finder ior aspect of the inferi or left lobe. This lesion is not readil y appare nt by sonogr aphy. ISTHMU S: Thickn ess: 0.3 cm. IMPRES LAURA: Multin odular goiter with solita ry 0.7 cm TR4 nodule in right lobe and 2 TR3 in left lobe (one measur ing 2.2 cm and other measur ing 1.7 cm). Simila r nodule s are descri bed in the ultras ound report in May 2012, althou gh, precis e compar ridge is not possib le due to the absenc e of hardco py. WSN: [id number] Dictat ed By: Anselmo Wong MD Dictat ed Date/T sharon: 6:15 pm Review ed By: Anselmo Wong MD Signed By: Anselmo Wong MD Signed Date/T sharon: 6:15 pm Transc ribed By: CSB Transc ribed Date/T sharon: 6:15 pm Patien t Class: Outpat ient [email or web address] [facility] (Outpt Imaging) [address] , [place], [address], 07/24/2018 15:13:02 12/06/19 20 11/26/2019 US, chest wall No observ ation record ed. Not Available 2019 11:51:24 Result Notes None recorded. 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 44424222 Completed 201106/17/2014 STORY: LUMPECTO MY 08/01/ PER ONCOLOGY ; RECORDED 11/26/20 12 9:14AM BY STEFFI DE JESUS MA, ANNOTATI ON/ADDEN DUM Nabil tuttle, [facility] 6 11:59:52 Screenin g for malignan t neoplasm of breast Completed 201106/17/2014 RECORDED 11/26/20 12 9:15AM BY STEFFI DE JESUS MA, ANNOTATI ON/ADDEN DUM Nabil hednerson null, [facility] 6 11:59:53 Carcinom a in situ of breast 690498860 Completed 201306/17/2014 RECORDED 03/04/20 14 1:46PM BY ASIF MOLINA MA, ANNOTATI ON/ADDEN DUM Nabil Hartmanand ro null, [facility] 6 11:59:52 Chest pain 55035333 Completed 200706/17/2014 RECORDED 07/14/20 08 1:39PM BY VA WHITE MA, ANNOTATI ON/ADDEN DUM Nabil Cruz ro null, [facility] 6 11:59:53 Chronic bronchit is 53961239 Active 2013 STORY: STABLE STATUS, CONTINUE CURRENT PLAN.; RECORDED 03/04/20 14 2:41PM BY NABIL VALADEZ MD, OFFICE VISIT Yumiko tuttle, [facility] 0 15:29:38 Cough 52467514 Completed 201206/17/2014 RECORDED 02/29/20 13 1:06PM BY ASIF MOLINA MA, ANNOTATI ON/ADDEN DUM Nabil Cruz ro null, [facility] 6 11:59:53 Tobacco dependen ce syndrome 40630365 Active 2013 Yumiko tuttle, [facility] 0 15:29:39 Disorder of salivary gland 54443642 Completed 201106/17/2014 RECORDED 11/26/20 12 9:14AM BY STEFFI DE JESUS MA, ANNOTATI ON/ADDEN DUM Nabil Cruz ro null, [facility] 6 11:59:52 Tobacco dependen ce syndrome 10065924 Completed 201106/17/2014 STORY: USES 2 CIGS/DAY , STABLE ON NICORETT E GUM; RECORDED 11/26/20 12 12:46PM BY VA WHITE MA, ANNOTATI ON/ADDEN DUM Nabil Cruz ro null, [facility] 6 11:59:52 Dysuria 89639879 Completed 201106/17/2014 STORY: PROB MILD UTI ON TOP OF BLADDER DYSFXN; RECORDED 11/26/20 12 9:14AM BY STEFFI DE JESUS MA, ANNOTATI ON/ADDEN [facility] Nabil henderson null, [facility] 6 11:59:53 Emphysem a Active 2013 Yumiko tuttle [facility] 0 15:29:38 Gastroes ophageal reflux disease 302575204 Active 2013 Yumiko tuttle [facility] 0 15:29:39 Essentia l hyperten laura 82745748 Completed 201106/17/2014 RECORDED 02/21/20 12 2:08PM BY VA WHITE MA, SHIREEN ON/[facility] Nabil tuttle, [facility] 6 11:59:52 Influenz a vaccine needed 66955007546 06 Completed 200806/17/2014 RECORDED 08/11/20 09 12:51PM BY NERY WHITE, OFFICE VISIT Nabil tuttle, [facility] 6 11:59:53 Tobacco user 283405016 Active 2013 Yumiko tuttle [facility] 0 15:29:39 History of clinical finding in subject 026806943 Active 2013 Yumiko tuttle [facility] 0 15:29:38 Tobacco user 547933385 Completed 201306/17/2014 RECORDED 03/04/20 14 1:46PM BY ASIF MOLINA MA, ANNOTATI ON/[facility] Nabil tuttle, [facility] 6 11:59:52 Adult health examinat ion Active 2013 Yumiko tuttle [facility] 0 15:29:38 Adult health examinat ion Completed 201206/17/2014 RECORDED 09/03/20 13 2:31PM BY ASIF MOLINA MA, ANNOTATI ON/ADDEN MARILYN tuttle, [facility] 6 11:59:53 History of malignan t neoplasm of breast 419482421 Active 2013 STORY: DCIS/200 5/COMPLE RUBY 5 YRS ARIMIDEX ; RECORDED 03/04/20 14 1:46PM BY ASIF MOLINA MA, OFFICE VISIT Yumikoximena tuttle [facility] 0 15:29:38 Difficul ty speaking Active 2013 Yumiko tuttle [facility] 0 15:29:38 Hyperlip idemia 30860129 Active 2013 Yumiko Pettitphillip tuttle, [facility] 0 15:29:39 Essentia l hyperten laura 04363925 Active 2013 Yumiko Pettit null [facility] 0 15:29:38 Herpes zoster 7275837 Active 2013 STORY: LEFT SHOULDER ; RECORDED 03/04/20 14 1:46PM BY ASIF MOLINA MA, OFFICE VISIT Yumikoximena tuttle [facility] 0 15:29:39 Impaired fasting glycemia 188694174 Active 2013 Yumiko Pettit null, [facility] 0 15:29:38 Low back pain 886916785 Active 2013 Yumiko Pettit null, [facility] 0 15:29:38 Shoulder joint pain 236320923 Active 2013 Yumiko Pettit null, [facility] 0 15:29:38 Disorder of skin pigmenta tion 27667113 Completed 201106/17/2014 RECORDED 11/26/20 12 9:14AM BY STEFFI DE JESUS MA, ANNOTATI ON/ADDEN DUM Nabil Cruz ro null, [facility] 6 11:59:52 Malaise and fatigue 250124384 Completed 200706/17/2014 RECORDED 07/14/20 08 1:39PM BY VA WHITE MA, ANNOTATI ON/ADDEN DUM Nabil Cruz ro null, [facility] 6 11:59:53 Mixed hyperlip idemia 661771999 Completed 200906/17/2014 RECORDED 06/15/20 10 9:52AM BY VA WHITE MA, ANNOTATI ON/ADDEN [facility] Nabil Cruz ro null, [facility] 6 11:59:52 Non-toxi c multinod ular goiter 08922326 Active 2013 STORY: F/U W/ [facility] ENDOCRIN E Q 1-2 YEARS; RECORDED 03/04/20 14 1:46PM BY ASIF MOLINA MA, OFFICE VISIT Yumiko tuttle [facility] 0 15:29:38 Active or passive immuniza tion Completed 200706/17/2014 RECORDED 07/14/20 08 2:54PM BY NABIL VALADEZ MD, OFFICE VISIT Nabil tuttle [facility] 6 11:59:53 Administ ration of tetanus vaccine Completed 201106/17/2014 RECORDED 11/26/20 12 9:14AM BY STEFFI DE JESUS MA, SHIREEN ON/ADDEN DUM Nabil tuttle, [facility] 6 11:59:53 Disorder of bone and articula r cartilag e 754750092 Active 2013 Yumiko tuttle [facility] 0 15:29:38 Osteopor osis 07267686 Active 2013 Yumiko tuttle [facility] 0 15:29:38 Osteopor osis 60315782 Completed 200906/17/2014 RECORDED 06/15/20 10 9:52AM BY VA WHITE MA, ANNOTATI ON/ADDEN DUM Nabil WalterAlessand ro null, [facility] 6 11:59:53 Pain in thoracic spine 325694890 Active 2013 Yumiko tuttle, [facility] 0 15:29:39 Impairme nt of voice producti on 726488953 Active 2013 Yumiko tuttle [facility] 0 15:29:38 Osteoart hritis 944849942 Completed 201106/17/2014 RECORDED 11/26/20 12 9:15AM BY STEFFI DE JESUS MA, [facility] Nabil Syed'Alessmarlin ro null, [facility] 6 11:59:52 Chronic sinusiti s 96546297 Completed 201206/17/2014 RECORDED 02/29/20 13 1:06PM BY ASIF MOLINA MA, ANNOTATI ON/[facility] Nabil Syed'Alessand ro null, [facility] 6 11:59:52 Screenin g for malignan t neoplasm of colon Completed 201106/17/2014 RECORDED 11/26/20 12 9:14AM BY STEFFI DE JESUS MA, ANNOTATI ON/ADDEN DUM Nabil Tito'Alessand ro null, [facility] 6 11:59:53 Non-toxi c uninodul ar goiter 374047958 Active 2013 Yumiko tuttle, [facility] 0 15:29:38 Persiste nt insomnia 141046157 Completed 200906/17/2014 RECORDED 06/15/20 10 9:52AM BY VA WHITE MA, ANNOTATI ON/ADDEN DUM Nabil D'Alessand ro null, [facility] 6 11:59:52 Acute upper respirat ory infectio n 39690915 Completed 201106/17/2014 RECORDED 11/26/20 12 9:15AM BY STEFFI DE JESUS MA, ANNOTATI ON/ADDEN DUM Nabil D'Alessand ro null, [facility] 6 11:59:52 Urge incontin ence of urine 93006307 Completed 201106/17/2014 RECORDED 11/26/20 12 9:14AM BY STEFFI DE JESUS MA, ANNOTATI ON/ADDEN DUM Nabil D'Alessand ro null, [facility] 6 11:59:53 Examinat ion for suspecte d mental disorder Completed 201207/07/2014 RECORDED 09/03/20 13 2:31PM BY ASIF MOLINA MA, ANNOTATI ON/ADDEN DUM Nabil D'Alessand ro null, [facility] 6 11:59:53 Screenin g for malignan t neoplasm of breast Completed 201107/07/2014 RECORDED 11/26/20 12 9:15AM BY STEFFI DE JESUS MA, ANNOTNADIA ON/ADDEN DUM Nabil D'Alessand ro null, [facility] 6 11:59:53 Carcinom a in situ of breast 856003071 Completed 201307/07/2014 RECORDED 03/04/20 14 1:46PM BY ASIF MOLINA MA, ANNOTATI ON/ADDEN DUM Nabil D'Alessand ro null, [facility] 6 11:59:52 Chest pain 05113722 Completed 200707/07/2014 RECORDED 07/14/20 08 1:39PM BY VA WHITE MA, ANNOTATI ON/ADDEN DUM Nabil D'Alessand ro null, [facility] 6 11:59:53 Cough 78132698 Completed 201207/07/2014 RECORDED 02/29/20 13 1:06PM BY ASIF MOLINA MA, ANNOTATI ON/ADDEN DUM Nabil Cruz ro null, [facility] 6 11:59:53 Disorder of salivary gland 30371724 Completed 201107/07/2014 RECORDED 11/26/20 12 9:14AM BY STEFFI DE JESUS MA, ANNOTATI ON/ADDEN DUM Nabil Cruz ro null, [facility] 6 11:59:52 Dysuria 86340693 Completed 201107/07/2014 STORY: PROB MILD UTI ON TOP OF BLADDER DYSFXN; RECORDED 11/26/20 12 9:14AM BY STEFFI DE JESUS MA, ANNOTATI ON/ADDEN DUM Nabil Cruz ro null, [facility] 6 11:59:53 Essentia l hyperten laura 51913284 Completed 201107/07/2014 RECORDED 02/21/20 12 2:08PM BY VA WHITE MA, SHIREEN ON/ADDEN DUM Nabil henderson null, [facility] 6 11:59:52 Influenz a vaccine needed 42449648471 06 Completed 200807/07/2014 RECORDED 08/11/20 09 12:51PM BY NERY WHITE, OFFICE VISIT Nabil tuttle, [facility] 6 11:59:53 Disorder of skin pigmenta tion 10332763 Completed 201107/07/2014 RECORDED 11/26/20 12 9:14AM BY STEFFI DE JESUS MA, ANNOTATI ON/ADDEN DUM Nabil tuttle, [facility] 6 11:59:52 Malaise and fatigue 522318937 Completed 200707/07/2014 RECORDED 07/14/20 08 1:39PM BY VA WHITE MA, ANNOTATI ON/ADDEN DUM Nabil D'Alessand ro null, [facility] 6 11:59:53 Mixed hyperlip idemia 779861092 Completed 200907/07/2014 RECORDED 06/15/20 10 9:52AM BY VA WHITE MA, ANNOTATI ON/ADDEN DUM Nabil Syed'Alessand ro null, [facility] 6 11:59:52 Active or passive immuniza tion Completed 200707/07/2014 RECORDED 07/14/20 08 2:54PM BY NABIL VALADEZ MD, OFFICE VISIT Nabil Syed'Ludivina ro null, [facility] 6 11:59:53 Administ ration of tetanus vaccine Completed 201107/07/2014 RECORDED 11/26/20 12 9:14AM BY STEFFI DE JESUS [facility], [facility] Nabil Syed'Alessand ro null, [facility] 6 11:59:53 Osteoart hritis 477802497 Completed 201107/07/2014 RECORDED 11/26/20 12 9:15AM BY STEFFI DE JESUS MA, ANNOTATI ON/ADDEN DUM Nabil Syed'Alessand ro null, [facility] 6 11:59:53 Chronic sinusiti s 84491410 Completed 201207/07/2014 RECORDED 02/29/20 13 1:06PM BY ASIF MOLINA MA, ANNOTATI ON/ADDEN DUM Nabil Syed'Alessand ro null, [facility] 6 11:59:52 Screenin g for malignan t neoplasm of colon Completed 201107/07/2014 RECORDED 11/26/20 12 9:14AM BY STEFFI DE JESUS MA, ANNOTATI ON/ADDEN DUM Nabil Syed'Alessand ro null, [facility] 6 11:59:53 Persiste nt insomnia 513731471 Completed 200907/07/2014 RECORDED 06/15/20 10 9:52AM BY VA WHITE MA, ANNOTATI ON/ADDEN On license of [facility] TitoNahunAlessand ro null, [facility] 6 11:59:52 Acute upper respirat ory infectio n 02274190 Completed 201107/07/2014 RECORDED 11/26/20 12 9:15AM BY STEFFI DE JESUS MA, ANNOTATI ON/ADDEN On license of [facility] TitoNahunAlessand ro null, [facility] 6 11:59:52 Urge incontin ence of urine 82570206 Completed 201107/07/2014 RECORDED 11/26/20 12 9:14AM BY STEFFI DE JESUS MA, ANNOTATI ON/ADDEN On license of [facility] TitoNahunAlessand ro null, [facility] 6 11:59:53 Chronic obstruct jody pulmonar y disease 56552943 Active Yumiko Pettit null, [facility] 0 15:29:39 Body mass index 30+ - obesity 588508119 Active Yumiko Pettit null, [facility] 0 15:29:39 Greater trochant octaviano pain syndrome 7753253 Active Yumiko Pettit null, [facility] 0 15:29:38 Spinal stenosis of lumbar region 70662289 Active Yumiko Pettit null, [facility] 0 15:29:38 Advance directiv e discusse d with patient 191715094 Active Yumiko Pettit null, [facility] 0 15:29:39 Bursitis of hip 43436947 Active Yumiko Pettit null, [facility] 0 15:29:38 Acute sciatica 353092355 Active Yumiko Pettit null, [facility] 0 15:29:38 Divertic ulitis 846145876 Active Yumiko Pettit null, [facility] 0 15:29:38 Abnormal weight loss 689135875 Completed 07/11/2018 Beverly Hardin PA-C [address], [place], [address] , [facility] 8 13:38:57 Constipa tion 63428232 Active Yumiko Pettit null, [facility] 0 15:29:39 Hyponatr emia 98825488 Active Yumiko Pettit null, [facility] 0 15:29:38 Chronic back pain 916736554 Active Yumiko Pettit null, [facility] 0 15:29:39 Transiti on of care 00169420147 05 Active Yumiko Pettit null, [facility] 0 15:29:38 Divertic ular disease 052907294 Active Yumikophillip Pettit null, [facility] 0 15:29:39 Osteoart hritis of knee 821220093 Active Yumiko Pettit null, [facility] 0 15:29:38 Osteopen ia 911973512 Active 2017 Yumiko Pettit null, [facility] 0 15:29:39 Vitamin D deficien cy 09286475 Active 2017 Yumikophillip tuttle, [facility] 0 15:29:38 Prediabe jenniffer 583785330 Active 2017 Yumiko Pettit null, [facility] 0 15:29:38 Chronic kidney disease stage 2 174385221 Active [address] 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 Procedures Surgical History Date Name Laterality Status Provider Name and Address Organization Details Recorded Time 07/11/20 18 Mini-Cog Test completed Kizzy Gaytan [facility] 07/11/2018 13:01:45 07/11/20 17 Fall Risk Assessment completed Fabio Rome [facility] 07/11/2017 13:04:06 07/11/20 17 Mini-Cog Test completed Fabio Rome [facility] 07/11/2017 13:04:55 04/29/20 16 Joint Injection completed Dimas Dasilva MD [address] [address], [place], [address], [facility] 04/29/2016 14:15:56 03/25/20 16 Fall Risk Assessment completed Angelia Feliciano MA [facility] 03/25/2016 13:05:17 03/25/20 16 Mini-Cog Test completed Angelia Feliciano MA [facility] 03/25/2016 13:05:17 03/25/20 16 Advanced Care Planning completed Angelia Feliciano MA [facility] 03/25/2016 13:05:17 03/07/20 16 Most Recent Mammogram completed Yumiko Pettit [facility] 03/08/2016 13:33:23 03/07/20 16 Mammogram Screening completed Yumiko Pettit [facility] 03/08/2016 13:33:23 03/05/20 15 Fall Risk Assessment completed Steffi De Jesus [facility] 03/05/2015 13:44:46 03/05/20 15 Mini-Cog Test completed Steffi De Jesus [facility] 03/05/2015 13:44:46 06/06/20 06 Date of Last Colonoscopy completed Fabio Rome [facility] 07/11/2017 13:08:36 06/06/20 06 Colonoscopy completed Haylee Dominguez [facility] 03/28/2016 16:59:58 Dxa bone density study completed Angelia Feliciano MA [facility] 03/25/2016 13:05:16 Breast Surgery completed [facility] 09/02/2014 09:59:44 Hysterectomy completed [facility] 09/02/2014 09:59:44 Tonsillectomy completed [facility] 09/02/2014 09:59:44 Imaging Results Imaging Date Name Status LastModified by Organiz ation Details LastModified Time 07/04/2016 MRI, lumbar spine, w/wo contrast completed [facility] [address], [place], [address], 07/05/2016 10:02:40 10/07/2016 MRI, lumbar spine, w/wo contrast completed [facility] [address] [place], [address], 10/19/2016 13:38:26 10/07/2016 MRI, lumbar spine, w/wo contrast completed [facility] ([facility] [address], [place], [address], 10/19/2016 13:34:30 07/19/2018 US, abdominal aorta completed [address] ([facility]) [address] [place], [address], 07/24/2018 15:13:01 07/19/2018 US, head + neck, soft tissue completed [address] ([facility]) [address] [place], [address], 07/24/2018 15:13:02 11/26/2019 US, chest wall completed Informat[facility] n not available 12/06/2019 11:51:24 Procedure Notes None recorded. Medical Equipment None Reported. Allergies Allergen ID Allergen Name Allergen Category Reaction Reaction Severity Criticality Documentation Date Start Date Code Code System Note Provider Name and Address Organization Details Recorded Time 76390 Lamisil medicatio n Not available Not available Not available 06/10/20142013 07840 6 RxNorm Va beasley [place] null, [facility] 6 13:28:42 17489 morphine sulfate medicatio n Not available Not available Not available 06/10/20142007 27274 RxNorm COMME NT: RECOR DED 07/14 1:39P M BY TOMASA DIAZ MA, OFFIC E VISIT ; Not Available [facility] 4 13:28:55 32366 Substance with sulfonami de structure and antibacte rial mechanism of action (substanc e) medicatio n Not available Not available Not available 02/04/20152013 16617 8003 SNOMED Jose Alejandro Alexandra tuttle, [facility] 6 11:44:07 57224 amlodipin e medicatio n edema moderate Not available 06/28/20162015 23202 RxNorm edema in feet/ legs KENDRA Ford, [facility] 6 11:07:44 81359 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,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 Not available Not available Not available 12/05/20192017 2635 RxNorm Yumiko tuttle, [facility] 0 15:29:37 Medications Name Sig Start Date Stop Date Status Note LastModified by Organization Details LastModified Time prednison e 10 mg tablet DAILY 01/16 completed RECORDED 02/02/20 10 12:46PM BY NABIL VALADEZ MD, MEDICATI ON AUTO-SAMMY CTIVATIO N; Not Available Not Available Not Available doxycycli ne hyclate 100 mg capsule TWO TIMES DAILY 01/21 completed RECORDED 02/02/20 10 12:46PM BY NABIL VALADEZ MD, MEDICATI ON AUTO-SAMMY CTIVATIO N; Not Available Not Available Not Available Toprol XL 25 mg tablet,ex tended release TAKE 1 TABLET DAILY active Not Available Not Available No t Available tizanidin e 2 mg tablet 07/11 completed Not Available Not Available Not Available irbesarta n 150 mg-hydroc hlorothia zide 12.5 mg tablet QD 06/10 completed RECORDED 06/10/20 08 3:00PM BY NABIL VALADEZ MD, ANNOTATI ON/ADDEN DUM; Not Available Not Available Not Available valacyclo vir 1 gram tablet THREE TIMES DAILY 02/25 completed RECORDED 02/26/20 14 4:13PM BY ASIF MOLINA MA, MEDICATI ON AUTO-SAMMY CTIVATIO N; Not Available Not Available Not Available hydrocodo ne 5 mg-acetam inophen 325 mg tablet 07/11 completed Not Available Not Available Not Available prednison e 20 mg tablet DAILY 12/01 completed RECORDED 12/04/19 13 2:06PM BY NABIL VALADEZ MD, MEDICATI ON AUTO-SAMMY CTIVATIO N; Not Available Not Available Not Available alendrona te 70 mg tablet TAKE 1 TABLET WEEKLY 2013 active Not Available Not Available Not Avai lable metronida zole 500 mg tablet Take 1 tablet 3 times a day by oral route for 10 days. 07/21 completed Not Available Not Available Not Available amlodipin e 5 mg tablet Take 1 tablet every day by oral route. active Not Available Not Available No t Available ciproflox acin 500 mg tablet TWO TIMES DAILY 06/22 completed RECORDED 08/05/20 10 1:53PM BY NABIL VALADEZ MD, MEDICATI ON AUTO-SAMMY CTIVATIO N; Not Available Not Available Not Available peg-elect rolyte solution 420 gram oral solution 07/11 completed Not Available Not Available Not Available spironola ctone 25 mg tablet 25 mg by oral route. active Not Available Not Available No t Available amoxicill in 875 mg tablet TWO TIMES DAILY 12/06 completed RECORDED 02/28/20 13 1:50PM BY NABIL VALADEZ MD, MEDICATI ON AUTO-SAMMY CTIVATIO N; Not Available Not Available Not Available simvastat in 20 mg tablet DAILY 07/24 completed RECORDED 07/24/20 09 2:08PM BY NABIL VALADEZ MD, ANNOTATI ON/ADDEN DUM; Not Available Not Available Not Available Atacand HCT 16 mg-12.5 mg tablet TAKE 1 TABLET DAILY 06/21 completed Not Available Not Available Not Available candesart an 32 mg tablet Take 1 tablet every day by oral route for 90 days. 07/11 completed Not Available Not Available Not Available gabapenti n 300 mg capsule THREE TIMES DAILY 03/20 completed RECORDED 03/25/20 14 4:41PM BY ASIF MOLINA MA, MEDICATI ON AUTO-SAMMY CTIVATIO N; Not Available Not Available Not Available Arimidex 1 mg tablet DAILY 02/04 completed RECORDED 02/05/20 11 1:08PM BY ADRIANA HINOJOSA, OFFICE VISIT;DR MONROY Not Available Not Available Not Available diclofena c sodium 75 mg tablet,de layed release Take 1 tablet twice a day by oral route for 30 days. 07/11 completed Not Available Not Available Not Available furosemid e 20 mg tablet 20 mg by oral route. active Not Available Not Available No t Available Cheratuss in AC 10 mg-100 mg/5 mL oral liquid FOUR TIMES DAILY, NEEDED 12/02 completed RECORDED 12/04/19 13 2:06PM BY NABIL VALADEZ MD, MEDICATI ON AUTO-SAMMY CTIVATIO N; Not Available Not Available Not Available ibuprofen 600 mg tablet Take 1 tablet 3 times a day by oral route. 07/11 completed Not Available Not Available Not Available levofloxa wesly 750 mg tablet Take 1 tablet every day by oral route for 10 days. 07/21 completed Not Available Not Available Not Available Adult Aspirin 81 mg tablet DAILY active RECORDED 07/14/20 08 1:43PM BY [facility] WHITE MA, OFFICE VISIT; Not Available Not Available Not Available albuterol (refill) 90 mcg/actua tion aerosol inhaler Inhale 2 puffs every 4-6 hours by inhalati on route as directed . 01/09 completed Not Available Not Available Not Available azithromy wesly 500 mg tablet DAILY 11/15 completed RECORDED 12/01/19 10 2:36PM BY NABIL VALADEZ MD, MEDICATI ON AUTO-SAMMY CTIVATIO N; Not Available Not Available Not Available senna-doc usate sodium 8.6 mg-50 mg tablet Take 2 tablets every day by oral route. 08/18 completed Not Available Not Available Not Available Vitamin D3 25 mcg (1,000 unit) capsule Take 1 capsule every week by oral route as directed for 30 days. 07/21 completed Not Available Not Available Not Available metoprolo l tartrate 25 mg tablet Take 1 tablet twice a day by oral route for 30 days. 07/11 completed Not Available Not Available Not Available Readi-Cat 2 2.1 % (w/v), 2.0 % (w/w) oral suspensio n Take 450 mL twice a day by oral route as directed for 1 day. 2015 active Not Available Not Available Not Avai lable Spiriva with [employer] r 18 mcg and inhalatio n capsules INHALE THE CONTENTS OF 1 CAPSULE DAILY active Not Available Not Available No t Available omeprazol e DAILY 05/03 completed RECORDED 05/03/20 12 9:47AM BY SHIREEN ALLRED ON/KYLE DUM; Not Available Not Available Not Available Adult Aspirin EC Low Strength 1 PO DAILY 2011 active Not Available Not Available Not Avai lable ProAir HFA 90 mcg/actua tion aerosol inhaler Inhale 2 puffs every 4 hours by inhalati on route for 30 days. active PRN Not Available Not Available No t Available Vitals Date Recorded Body height Body mass index (BMI) Body weight Body temperature Heart rate Oxygen saturation Oxygen saturation in Arterial blood by Pulse oximetry Systolic blood pressure Diastolic blood pressure Provider Name and Address Organization Details Last Updated DateTime 7 166.37 cm 34.4 kg/m2 88923.1 2 g 98.1 [degF] 76 /min 95 % 95 % 165 mm[Hg] 85 mm[Hg] Fabio Rome [facility] 7 13:00:21 Date Recorded Body height Body mass index (BMI) Body weight Heart rate Body temperature Oxygen saturation Oxygen saturation in Arterial blood by Pulse oximetry Systolic blood pressure Diastolic blood pressure Provider Name and Address Organization Details Last Updated DateTime 8 166.37 cm 34.9 kg/m2 50760.1 7 g 77 /min 97.8 [degF] 94 % 94 % 135 mm[Hg] 78 mm[Hg] Carolyn Daily [facility] 8 12:56:56 Date Recorded Body height Body mass index (BMI) Body weight Body temperature Heart rate Oxygen saturation Oxygen saturation in Arterial blood by Pulse oximetry Systolic blood pressure Diastolic blood pressure Provider Name and Address Organization Details Last Updated DateTime 8 166.37 cm 34.9 kg/m2 54649.5 7 g 98.2 [degF] 66 /min 94 % 94 % 184 mm[Hg] 77 mm[Hg] Kizzytony Gaytan [facility] 8 13:02:35 Date Recorded Body height Body weight Body mass index (BMI) Heart rate Oxygen saturation Oxygen saturation in Arterial blood by Pulse oximetry Body temperature Systolic blood pressure Diastolic blood pressure Provider Name and Address Organization Details Last Updated DateTime 6 166.37 cm 48226.4 7 g 32.8 kg/m2 80 /min 98 % 98 % 97.8 [degF] 178 mm[Hg] 82 mm[Hg] Jose Alejandro Morris [facility] 6 13:24:59 Date Recorded Body height Body temperature Oxygen saturation Oxygen saturation in Arterial blood by Pulse oximetry Heart rate Body weight Body mass index (BMI) Systolic blood pressure Diastolic blood pressure Provider Name and Address Organization Details Last Updated DateTime 6 166.37 cm 98.8 [degF] 95 % 95 % 81 /min 15464.1 6 g 32.6 kg/m2 152 mm[Hg] 80 mm[Hg] Carolyn Daily [facility] 6 11:42:50 Social History Question Answer Notes LastModified by Organizat ion Details LastModified Time Tobacco Smoking Status Former Smoker Steffi tuttle [facility] 09/02/2014 12:56:50 What Is Your Level Of Alcohol Consumption? Occasional Information not available 03/05/2015 Is Blood Transfusion Acceptable In An Emergency? Yes Information not available 07/11/2017 What Is Your Level Of Caffeine Consumption? Occasional Coffee/tea Information not available 03/05/2015 How Much Tobacco Do You Chew? None Information not available 04/29/2016 Are You Currently Employed? No Information not available 04/29/2016 What Type Of Diet Are You Following? REGULAR No Salt In Cooking Information not available 07/11/2018 Which Illicit Or Recreational Drugs Have You Used? None Information not available 07/11/2017 What Is Your Occupation? Retired Information not available 07/11/2018 Live Alone Or With Others? With Others Dtr Adriana/ ( Todd Brown) Information not available 03/25/2016 Do You Take Precautions To Prevent Distracted Driving? Yes Information not available 07/11/2017 How Often Do You Need To Have Someone Help You When You Read Instructions, Pamphlets, Or Other Written Material From Your Doctor Or Pharmacy? Never Information not available 07/11/2017 Have You Served In The ? No Information not available 07/11/2017 What Was The Date Of Your Most Recent Tobacco Screening? 07/11/2018 Information not available 06/20/2019 How Many Children Do You Have? 2 Other Dtr Is Zulma Information not available 06/20/2016 Seat Belts Used Routinely Yes Information not available 07/11/2017 Are You Sexually Active? No Information not available 04/29/2016 Smoke Alarm In Home Yes Information not available 04/29/2016 At What Age Did You Start Smoking Tobacco? 0 Information not available 07/11/2018 How Much Tobacco Do You Smoke? No Information not available 07/11/2018 Do You Use Sunscreen Routinely? No Information not available 07/11/2017 Sex: Unknown Functional Status Question Answer Note LastModified by Organization D etails LastModified Time Are you able to care for yourself? Yes Information n ot available 04/29/2016 What is your exercise level? None Information not available 03/05/2015 Mental Status None recorded. Family History Relationship Description Onset Age of this Age Resolved Age Notes LastModified by Organization Details LastModified Time Mother Chronic obstructive pulmonary disease 78 Mom of COPD/ at 78 mdalessandro Not available 01/09/2018 13:13:27 Sister Carcinoma in situ of breast mdalessandro Not available 12:27:42 Father Ischemic heart disease 63 mdalessandro Not available 12:27:42 Medical History Condition Response Muscle, Joint, or Bone Problems Y Hypertension Y COPD Y Breast Cancer Y Gynecological History Statement/Question Response Date of Last Colonoscopy 06/06/2006 Sexually Active? N Menses Monthly N Sexual Problems? N Current Control Method None Most Recent Mammogram 03/07/2016 LMP Unknown Desired Control Method N/A Obstetrics History GPAL:G 0 P 0 0 0 0 Immunizations Vaccine Type Date Status Note Provider Nam e and Address Organization Details Recorded Time Pneumococcal conjugate PCV 13 5 completed Not Available [facility] 12/14/2019 02:21:36 Influenza, split virus, trivalent, PF 4 completed Not Available [facility] 12/14/2019 02:21:57 Td (adult), 2 Lf tetanus toxoid, preservative free, adsorbed 0 completed Yumikophillip tuttle [facility] 12/05/2019 15:29:39 pneumococcal polysaccharide PPV23 8 completed Yumiko Pettitphillip tuttle, [facility] 12/05/2019 15:29:39 Influenza, split virus, trivalent, preservative 9 completed Yumiko Pettit parag, [facility] 12/05/2019 15:29:39 Td (adult), 2 Lf tetanus toxoid, preservative free, adsorbed 0 completed Yumiko Pettitphillip tuttle [facility] 12/05/2019 15:29:39 Past Encounters Encounter ID Performer Location Encounter Start Date Encounter Closed Date Diagnosis/Indication Diagnosis SNOMED-CT Code Diagnosis ICD10 Code Diagnosis Note [id number] [facility] [address] [facility] [address] [place] [address] 07/10/2007 00:00:00 [id number] autoEComm erce [address] [place] [address] 07/10/2007 00:00:00 [id number] autoEComm erce [address] [place] [address] 11/13/2007 00:00:00 [id number] autoEComm erce [address] [place] [address] 11/13/2007 00:00:00 [id number] autoEComm erce [address] [place] [address] 11/13/2007 00:00:00 [id number] autoEComm erce [address] [facility] [place] [address] 06/10/2008 00:00:00 [id number] autoEComm erce [address] [facility] [place] [address] 06/10/2008 00:00:00 [id number] autoEComm erce [address] [facility] [place] [address] 06/10/2008 00:00:00 [id number] autoEComm erce [address] [facility] [place] [address] 07/14/2008 00:00:00 [id number] autoEComm erce [address] [facility] [place] [address] 07/14/2008 00:00:00 [id number] autoEComm erce [address] [facility] [place] [address] 03/19/2009 00:00:00 [id number] autoEComm erce [address] [facility] [place] [address] 03/19/2009 00:00:00 [id number] autoEComm erce [address] [facility] [place] [address] 07/24/2009 00:00:00 [id number] autoEComm erce [address] [facility] [place] [address] 07/24/2009 00:00:00 [id number] autoEComm erce [address] [facility] [address] [place] [address] 07/24/2009 00:00:00 [id number] autoEComm erce [address] [place] [address] 07/24/2009 00:00:00 [id number] autoEComm erce [address] [place] [address] 08/11/2009 00:00:00 [id number] autoEComm erce [address] [place] [address] 08/11/2009 00:00:00 [id number] autoEComm erce [address] [place] [address] 08/11/2009 00:00:00 [id number] autoEComm erce [address] [facility] [place] [address] 08/11/2009 00:00:00 [id number] autoEComm erce [address] [facility] [place] [address] 11/10/2009 00:00:00 [id number] autoEComm erce [address] [facility],[address] [place] [address] 11/10/2009 00:00:00 [id number] autoEComm erce [address] [facility],[address] [place] [address] 11/10/2009 00:00:00 [id number] autoEComm erce [address] [facility],[address] [place] [address] 11/10/2009 00:00:00 [id number] autoEComm erce [address] [facility] [address] [facility] [address] [place] [address] 12/01/2009 00:00:00 [id number] autoEComm erce [address] [facility],[address] [place] [address] 12/01/2009 00:00:00 [id number] autoEComm erce [address] [place] [address] 12/01/2009 00:00:00 [id number] autoEComm erce [address] [place] [address] 12/01/2009 00:00:00 [id number] autoEComm erce [address] [facility] [address] [facility] [address] [place] [address] 01/11/2010 00:00:00 [id number] autoEComm erce [address] [place] [address] 01/11/2010 00:00:00 [id number] autoEComm erce [address] [place] [address] 01/11/2010 00:00:00 [id number] autoEComm erce [address] [facility] [place] [address] 01/11/2010 00:00:00 [id number] autoEComm erce [address] [facility],[address] [place] [address] 02/02/2010 00:00:00 [id number] autoEComm erce [address] [facility],[address] [place] [address] 02/02/2010 00:00:00 [id number] autoEComm erce [address] [facility],[address] [place] [address] 02/02/2010 00:00:00 [id number] autoEComm erce [address] [facility],[address] [place] [address] 02/02/2010 00:00:00 [id number] autoEComm erce [address] [facility] [place] [address] 06/15/2010 00:00:00 [id number] autoEComm erce [address] [facility] [place] [address] 06/15/2010 00:00:00 [id number] autoEComm erce [address] [facility],[address] [place] [address] 06/15/2010 00:00:00 [id number] autoEComm erce [address] [place] [address] 06/15/2010 00:00:00 [id number] autoEComm erce [address] [place] [address] 08/06/2010 00:00:00 [id number] autoEComm erce [address] [place] [address] 08/06/2010 00:00:00 [id number] autoEComm erce [address] [facility] [address] [place] [address] 08/06/2010 00:00:00 [id number] autoEComm erce [address] [facility] [address] [facility] [address] [place] [address] 09/03/2010 00:00:00 [id number] autoEComm erce [address] [facility] [address] [place] [address] 09/03/2010 00:00:00 [id number] autoEComm erce [address] [facility],[address] [place] [address] 02/04/2011 00:00:00 [id number] autoEComm erce [address] [facility] [address] [place] [address] 02/04/2011 00:00:00 [id number] autoEComm erce [address] [facility],[address] [place] [address] 08/09/2011 00:00:00 [id number] autoEComm erce [address] [facility],[address] [place] [address] 08/09/2011 00:00:00 [id number] autoEComm erce [address] [facility] [address] [place] [address] 08/09/2011 00:00:00 [id number] autoEComm erce [address] [facility],[address] [place] [address] 02/10/2012 00:00:00 [id number] autoEComm erce [address] [place] [address] 02/10/2012 00:00:00 [id number] autoEComm erce [address] [place] [address] 05/14/2012 00:00:00 [id number] autoEComm erce [address] [place] [address] 11/26/2012 00:00:00 [id number] autoEComm erce [address] [place] [address] 11/26/2012 00:00:00 [id number] autoEComm erce [address] [facility] [address] [place] [address] 11/26/2012 00:00:00 [id number] autoEComm erce [address] [facility] [address] [place] [address] 02/28/2013 00:00:00 [id number] autoEComm erce [address] [facility] [address] [place] [address] 09/03/2013 00:00:00 [id number] autoEComm erce [address] [facility] [address] [place] [address] 09/03/2013 00:00:00 [id number] autoEComm erce [address] [facility],[address] [place] [address] 09/03/2013 00:00:00 [id number] autoEComm erce [address] [facility],[address] [place] [address] 09/03/2013 00:00:00 [id number] autoEComm erce [address] [facility] [address] [place] [address] 12/23/2013 00:00:00 [id number] autoEComm erce [address] [facility] [address] [place] [address] 12/23/2013 00:00:00 [id number] autoEComm erce [address] [place] [address] 12/23/2013 00:00:00 [id number] autoEComm erce [address] [place] [address] 12/23/2013 00:00:00 [id number] autoEComm erce [address] [place] [address] 02/20/2014 00:00:00 [id number] autoEComm erce [address] [place] [address] 02/20/2014 00:00:00 [id number] autoEComm erce [address] [place] [address] 02/20/2014 00:00:00 [id number] autoEComm erce [address] [place] [address] 02/20/2014 00:00:00 [id number] autoEComm erce [address] [facility] [address] [place] [address] 03/04/2014 00:00:00 [id number] autoEComm erce [address] [facility] [place] [address] 03/04/2014 00:00:00 [id number] autoEComm erce [address] [facility] [address] [facility] [address] [place] [address] 03/04/2014 00:00:00 [id number] autoEComm erce [address] [facility] [place] [address] 03/04/2014 00:00:00 [id number] Marli Hinojosa Main Office [address] [place] [address] 09/02/2014 12:43:04 09/02/2014 13:48:01 Needs influenza immunization 382505393 History of malignant neoplasm of breast 457121828 Chronic bronchitis 58438299 Essential hypertension 65505835 [id number] Carolyn Daily [place] Main Office [address] [place], [place] [address] 03/05/2015 13:34:02 03/05/2015 14:28:10 Adult health examination 180737068 At increas ed risk for falls 998702705 History of malignant neoplasm of breast 509755305 [place] follows pt yearly DCIS Chronic ob structive pulmonary disease 85156258 Body mass index 30+ - obesity 149425415 Essential hypertension 48800581 Low back pain 489174001 [id number] Main Office [address] [facility] [address] [place] [address] 08/11/2015 11:19:30 08/11/2015 12:01:29 Greater trochanteric pain syndrome [id number] educated pt re the difference between sx from bursitis and her lumbar stenosis radicular sx ( see [facility] notes) Essential hypertension [id number] Gastroesop hageal reflux disease 886475560 Administra tion of pneumococcal vaccine 87858045 Spinal josep nosis of lumbar region 61607454 pt sees Dr Jarrett at [facility]/ pt will consider more aggressive therapy if sx persist [id number] Nabil henderson Main Office [address] [address] [place] [address] 03/25/2016 12:57:23 03/25/2016 14:28:01 Adult health examination 287059028 Z00.00 pt had colonoscop y 2006/[place]. 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 hip bursitis, nontraumat ic. Probably arthropath y related. NOt responding to NSAIDs. Will refer for cortisone injection and do XRAy of the hip. Acute sciatica 317665475 M54.32 Heat applicatio ns, stratches and NSAIDs for few more days on a full stomach. [id number] Dimas Dasilva MD Main Office [address] [facility] [address] [place] [address] 04/29/2016 13:18:22 04/29/2016 14:19:21 Bursitis of hip 05039347 M71.559 [id number] Nabil henderson Main Office [address] [facility] [address] [place] [address] 06/20/2016 11:28:05 06/20/2016 12:24:07 Diverticulitis 486032880 K57.92 Abnormal weight loss 267 343206 R63.4 [id number] Nabil TitoNahunLudivina henderson Main Office [address] [facility] [address] [place] [address] 06/27/2016 10:26:06 06/27/2016 11:43:14 [id number] Nabil henderson Main Office [address] [address] [place] [address] 06/30/2016 12:55:30 06/30/2016 14:01:05 Essential hypertension 96708469 I10 off amlodipine d/t edema, now back on candesarta n (but no hctz) at max dose - trial c low dose lasix, will monitor potassium Bursitis of hip 87970013 M71.559 hip to knee pain -- see below LBP Constipation 67121937 K5 9.00 Low back pain 095494569 M54.5 PMR was consulted who suggested that this could be multifacto rial from left knee OA, Lumbar stenosis, DJD and possibly sacrolilia c joint dysfunctio n. -Would recommend lumbar MRI as outpatient . Hyponatremia 09187466 E8 7.1 off hctz, monitor labs Chronic back pain 544523 002 G89.29 Transition of care 84576 43570 105 Z75.8 Diverticular disease 397 292211 K57.90 Osteoarthr itis of knee 009251082 M17.12 [id number] Nabil henderson Main Office [address] [facility] [address] [place] [address] 07/21/2016 13:15:02 07/21/2016 14:41:33 Essential hypertension 56768453 I10 off amlodipine d/t edema, now back on candesarta n (but no hctz) at max dose - trial c low dose lasix, will monitor potassium addendum 8.25 - on max dose candesarta n, reluctant to increase lasix d/t no edema and concern over renal function -- trial with low dose beta stephany Chronic back pain 778223 002 G89.29 will f/u c PCP next month - consider pain medication to make more comfortabl e if considerin g another attempt at lumbar mri Hyponatremia 79340799 E8 7.1 off hctz, monitor labs Constipation 62967015 K5 9.00 Osteoarthr itis of knee 719369952 M17.12 pending ortho eval [id number] Nabil henderson Main Office [address] [facility] [address] [place] [address] 08/18/2016 11:28:18 08/18/2016 12:14:03 Bursitis of hip 25884650 M71.559 Essential hypertension 33949548 I10 cont current meds Low back pain 453009946 M54.5 [id number] Karon Montgomery Main Office [address] [address] [place] [address] 07/11/2017 12:36:09 07/11/2017 13:42:30 Adult health examination 441420320 Z00.01 pt had [place]oscop y 2005[place]. she declines to any further scopes/ she does have some hemorrhoid al Chronic bronchitis 10240 004 J42 cont meds Essential hypertension 20831603 I10 Shoulder joint pain 2679 50556 M25.512 Chronic ob structive pulmonary disease 81306352 J44.9 [id number] Nabil henderson Main Office [address] [address] [place] [address] 01/09/2018 12:35:28 01/09/2018 13:31:57 Chronic obstructive pulmonary disease 03805865 J44.9 Impaired f asting glycemia 229082517 R73.01 Hyponatremia 75469371 E8 7.1 Essential hypertension 66062468 I10 [id number] Troy White MD Main Office [address] [facility] [address] [place] [address] 07/11/2018 12:38:06 07/11/2018 14:06:10 Adult health examination 837387246 Z00.00 declined flu vaccine, up to date on Td. Chronic ob structive pulmonary disease with acute lower respiratory infection 053361737 J44.0 F/u with pulmonary. Discuss pulmonary taking over Spiriva and ProAir Rx. 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 Osteopenia 904073827 M85 .[address] Monroy. Pt. stopped Fosomax due to side effects. Last DEXA scan was in 2017. Vitamin D deficiency 347 [address] Monroy. PT. should be on OTC Vit D supplement s, but is not taking daily. WAs advised to take daily. Needs infl uenza immunization 451382681 Z23 DEclined to be vaccinated todat despite high risk with COPD. Varicella vaccination 68 188329 Z23 Prediabetes 729142590 R7 3.03 ADvised low xavier/low carb diet and exercise. Retest glucose and A1c. History of malignant neoplasm of breast 626830638 Z85.3 F/u with Dr. Monroy as scheduled. Pure hypercholesterolemia 879371355 E78.00 Essential hypertension 88389087 I10 Pt. will lower caffeine and sodium and have her daughter who is RN to check BP at home daily for 1-2 weeks and call me. Continue current meds. Body mass index 30+ - obesity 112480837 E66.9 Z68.34 Health Concerns Section Related Observation LastModified by Organization Detai ls LastModified Time None Recorded Concern Status LastModified by Organization Details LastModified Time None Recorded Advance Directives Directive None Recorded Payers Encounter Date Sequence Insurance Name Policy Number Policy [place] Covered Member ID [place] Member ID Guarantor Name 07/21/2016 2 [employer]PS - FOR LIFE (MEDICARE SUPPLEMENT) Stefanie Cameron [id number] Stefanie Cameron 07/21/2016 1 [place] [employer] Stefanie Cameron [id number] Stefanie Cameron 08/18/2016 2 WPS - FOR LIFE (MEDICARE SUPPLEMENT) Stefanie Cameron [id number] Stefanie Cameron 08/18/2016 1 [place] [employer] Stefanie Cameron [id number] Stefanie Sepulvedaindo 07/11/2017 2 WPS - FOR LIFE (MEDICARE SUPPLEMENT) Stefanie Marsh Cameron [id number] Stefanie Marsh Cameron 07/11/2017 1 [place] [facility] Stefanie Sepulvedaindo [id number] Stefanie Marsh Cameron 01/09/2018 2 WPS - FOR LIFE (MEDICARE SUPPLEMENT) Stefanie Marsh Cameron [id number] Stefanie Marsh Cameron 01/09/2018 1 MEDICARE [place]: [facility] Stefanie Marsh Cameron [id number] Stefanie Marsh Cameron 07/11/2018 2 WPS - FOR LIFE (MEDICARE SUPPLEMENT) Stefanie Marsh Cameron [id number] Stefanie Marsh Cameron 07/11/2018 1 MEDICARE [place]: [facility] Stefanie Sepulvedaindo [id number] Stefanie Marsh Cameron Notes Date Note Type Note Provider Name and Address Organization Details Recorded Time 6 text/html had repeat labs recently - Na+ lower than DC from hospital - placed on 1500ccFR. had attempted mri lumbar - not performed d/t too much pain - not rescheduled. pending see ortho for knee. moving bowels q few days despite senna. taking tylenol for pain control. no trouble c ble edema, taking lasix as dir but admits to not urinating that much to begin with (chronic). occ take pablove Nabil tuttle [facility] 07/21/2016 19:17:43 6 text/html Back PainReported bypatient.Location:pain radiating to the legs; pain from left knee to hip/back area Severity:same Duration:chronic Onset/Timing:recurrent episode Context:prior back problems Associated Symptoms:no fever;numbness of the legs/feet; numb left thighHypertension F/UReported bypatient.Associated Symptoms:no lightheadedness; no chest pain Lifestyle:limiting/avoid ing salt;not exercising regularly Medications:taking medications as directed; no side effects from medication Nabil tuttle [place] - [facility] 08/18/2016 12:14:59 7 text/html Medicare Annual Wellness VisitReported bypatient.Diet and Nutrition:discussed portion control Fracture Risk:no history of fractures; no recent explained fracture; no sudden unexplained fractures Physical Activity:poor physical condition;deconditioned due to sedentary lifestyle; discussed exercise habits Depression Risk:never feels sad, empty, or tearful; no loss of interest in activities; no significant changes in weight; no sleep disturbances or insomnia; no agitation; no loss of energy; no feelings of worthlessness or guilt; no thoughts of suicide; no history of depression; no history of mood disorders Orientation:no disorientation to time; no disorientation to date; no disorientation to place Concentration and Memory:no decreased concentrating ability; no memory lapses or loss; does not forget words Speech/Motor difficulties:no speech difficulties; no difficulty expressing formulated concepts; no difficulty with fine manipulative tasks; no difficulty writing/copying; no slowed reaction time; does not knock things over when trying to pick them up Activities of Daily Living:able to bathe with limited or no assistance; able to contol urination and bowels; able to dress with limited or no assistance; able to feed self with limited or no assistance; able to get out of chair or bed with limited or no assistance; able to groom with limited or no assistance; able to toilet with limited or no assistance Instrumental Activities of Daily Living:able to do house work with limited or no assistance; able to grocery shop with limited or no assistance; able to manage medications with limited or no assistance; able to manage money with limited or no assistance; able to prepare meals with limited or no assistance; able to use the phone with limited or no assistance Falls Risk Assessment:no frequent falls while walking; no fall in the past year; no fall since last visit; no dizziness/vertigo Home Safety:good lighting in the home ADRIANA Gabriel [facility] 07/12/2017 18:57:14 8 text/html COPDReported bypatient.Onset/Timing:c hronic; chronic: has not changed Severity:severe Context:family history of COPD; influenza vaccine no; pneumococcal vaccine yes; pt declines flu shot/ knows this would reduce risks Alleviating factors:relieved with rest; relieved with bronchodilator Aggravating factors:worse with exertion Associated Symptoms:dyspnea;fatigue ; scant phlegm productionGeneric HPI TemplateReported bypatient.Location:both legs w/ edema/ pt has hx of hyponatremia/see Renal notes. see plan, also impaired fasting glucoseHypertension F/UReported bypatient.Associated Symptoms:no dizziness; no lightheadedness; no chest pain;shortness of breath; she only has dyspnea due to her COPD. Lifestyle:limiting/avoid ing salt;not exercising regularly Medications:taking medications as directed; no side effects from medication Nabil tuttle [facility] 01/09/2018 13:33:22 8 text/html Medicare Annual Wellness VisitReported bypatient.Diet and Nutrition:healthy diet; discussed vitamin and supplement use; discussed portion control; discussed maintaining calcium balance; discussed diet improvement Fracture Risk:no recent explained fracture; no sudden unexplained fractures;history of fractures;previous musculoskeletal injuries; traumatic broken ankle in the past Physical Activity:decreased physical activity;deconditioned due to sedentary lifestyle; discussed weightbearing activities; discussed exercise habits Hearing:decreased hearing bilaterally. NOt wearing hearing aids. Vision:no vision problems Activities of Daily Living:able to bathe with limited or no assistance; able to contol urination and bowels; able to dress with limited or no assistance; able to feed self with limited or no assistance; able to get out of chair or bed with limited or no assistance; able to groom with limited or no assistance; able to toilet with limited or no assistance Instrumental Activities of Daily Living:able to do house work with limited or no assistance; able to grocery shop with limited or no assistance; able to manage medications with limited or no assistance; able to manage money with limited or no assistance; able to prepare meals with limited or no assistance; able to use the phone with limited or no assistance Falls Risk Assessment:no frequent falls while walking; no fall in the past year; no fall since last visit; no dizziness/vertigo Home Safety:no unsafe arya hazzards; no unsafe stairs; no unsafe gas appliances; working smoke/CO detectors; use of seatbelts; no vision or hearing loss while driving; no fire arms; has hand bars in the bathroom/shower; good lighting in the home 82 year old female for annual Medicare WEllness visit. PT. has h/o L. breast cancer followed by DR. Monroy. Had lumpectomy in 2004 followed by radiation and preventative meds. Gets yearly mammograms as per oncology. 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 Pt. had hysterectomy. Last colonoscopy was normal in 2005 with recommended f/u in 10 years. Pt. cancelled tammie. 2 years ago. REports no issues with bowels and does not want another colonoscopy.Knee OA and low back pain and R. rotator cuff tear. Pt. takes occasional pain meds OTC.GERD. NOt bothering her a lot. NO meds taken.Osteopenia managed by Dr. Monroy as well as Vit D deficiency. Bone density scans yearly. Pt. is not taking daily Vit D supplements recommended.Pt. is on 2 diuretics. I could not find cardiology notes or prior cardiac diagnosis for her although she is on both beta blockade and 2 diuretics. Troy White MD [address] [address], [place], [address], [facility] 07/11/2018 15:06:23 OBGyn Episode No OBEpisode recorded.
--- OUTSIDE RECORDS SUMMARY | 2025-02-25 18:40 | XMS_ITS | Continuity of Care Document ---
Author Organization [facility] Address [address] [place] [address]- Care Team Providers Care Open End Spinning Operator Name Role Phone Eldon CARUSO, Fermin Rinaldi Primary Care Physician [place] [facility]): [place] - 02/19/25 [facility] [address] [place] [address] Attending Physician: Ruben Charlton Admitting Physician: Ruben Charlton Referring Physician: Ruben Charlton Encounter Type: Triage Allergies, Adverse Reactions, Alerts Substance Criticality Severity Reaction Reaction Severity Status terbinafine face, throat swelling Active Immunizations Given and Recorded Vaccine Date Status Refusal Reason influenza virus vaccine, inactivated 1 10/09/23 Gi valentin SARS-CoV-2 (COVID-19) mRNA BNT-162b2 vac 10/19/21 Recorded SARS-CoV-2 (COVID-19) mRNA BNT-162b2 vac 02/01/21 Given SARS-CoV-2 (COVID-19) mRNA BNT-162b2 vac 01/11/21 Given pneumococcal 13-valent vaccine 08/11/15 Recorded pneumococcal 13-valent vaccine 08/11/05 Recorded Influenza Virus Vaccine (oldterm) 09/02/14 Recorde d Influenza Virus Vaccine (oldterm) 08/11/09 Recorde d tetanus-diphtheria toxoids (Td) 08/06/10 Recorded tetanus-diphtheria toxoids (Td) 07/03/00 Recorded pneumococcal 23-valent vaccine 07/14/08 Recorded 1Result Comment: questionaire complete Medications Albuterol (Eqv-Ventolin HFA) 90 mcg/inh inhalation aerosol 2 inhalation = 180 mcg, Inhalation, Every 4 hours, PRN as needed for shortness of breath or wheezing, # 6.7 Gm, 5 Refills, Maintenance, 11/16/24 6:05:00 AM EST, Aerosol, [id number], Partial fill upon patient request if the prescription is for a schedule II opioid drug., 2 inhalation Inhalation Every 4 hours,PRN:as needed for shortness of breath or wheezing, 163.4, cm, 11/14/24 15:02:00 EST, Height, 85.5, kg, 09/23/24 12:57:00 EDT, Dry Weight Start Date: 11/16/24 Status: Ordered Quantity: 6.7 Unit: g Repeat number: 6 Aspirin Tablet 81 mg, By Mouth, Daily, Refills 0, Maintenance, 06/21/16 1:09:56 PM EDT Start Date: 06/21/16 Status: Ordered Repeat number: 1 calcium (as carbonate) 500 mg oral tablet, chewable 1 tablet = 500 mg, Chew, 2 times a day, # 120 tablet, 2 Refills, Maintenance, 01/17/20 4:43:00 PM EST, Chew Tablet, [facility], 170, cm, 01/17/20 14:27:00 EST, Height, 97.1, kg, 11/27/19 5:24:00 EST, Dry Weight Start Date: 01/17/20 Status: Ordered Quantity: 120.0 Unit: tablet Repeat number: 3 Calcium And Vitamin D Combination 1 tablet, By Mouth, Daily, 0 Refills, Maintenance, 11/14/24 3:00:00 PM EST, Partial fill upon patient request if the prescription is for a schedule II opioid drug. Start Date: 11/14/24 Status: Ordered Repeat number: 1 Compression Stockings See Instructions, # 2 each, Refills 2, Tot. Refills 2, Maintenance, surgical, knee length 20-30 mm Hg, 11/14/24 3:27:00 PM EST, Supply Start Date: 11/14/24 Status: Ordered Quantity: 2.0 Unit: each Repeat number: 3 Lasix 20 mg oral tablet 40 mg, 2, tablet, By Mouth, Daily, # 60 tablet, Refills 11, Tot. Refills 11, Maintenance, 05/19/21 8:08:00 AM EDT, Route to Pharmacy Electronically, [facility], 170, cm, 05/18/21 14:27:00 EDT, Height, 97.1, kg, 11/27/19 5:24:00 EST, Dry Weight Start Date: 05/19/21 Status: Ordered Quantity: 60.0 Unit: tablet Repeat number: 12 Indication: Heart failure, unspecified Lytes, BUN, Creatinine to be drawn on 12/09 Lytes, BUN, Creatinine to be drawn on 12/09, See Instructions, # 1 each, Refills 0, Tot. Refills 0, Maintenance, Lytes, BUN, Creatinine to be drawn on 12/09, 12/05/19 4:10:00 PM EST, Compound, 170, cm, 12/05/19 14:54:00 EST, Height, 97.1, kg, 11/27/19 5:24:00 EST, Dry Weight Start Date: 12/05/19 Status: Ordered Quantity: 1.0 Unit: each Repeat number: 1 Metoprolol Succinate ER 25 mg oral tablet, extended release 1, tablet, By Mouth, Daily, # 90 tablet, Refills 1, Maintenance, 12/10/24 2:16:00 PM EST, Route to Pharmacy Electronically, [facility], 163.4, cm, 11/14/24 15:02:00 EST, Height, 85.5, kg, 09/23/24 12:57:00 EDT, Dry Weight Start Date: 12/10/24 Status: Ordered Quantity: 90.0 Unit: tablet Repeat number: 1 ProAir HFA 90 mcg/inh inhalation aerosol with adapter 180 mcg, 2, puffs, Inhalation, Every 4 hours, PRN, # 8.5 Gm, Refills 5, Tot. Refills 5, Maintenance, 11/30/22 5:46:00 PM EST, Inhaler, Route to Pharmacy Electronically, [id number], [facility], 164.5, cm, 10/12/22 10:45:00 EST, Height, 97.2, kg, 10/12/22 10:45:00 EST, Dry Weight Start Date: 11/30/22 Status: Ordered Quantity: 8.5 Unit: g Repeat number: 6 Spiriva Respimat 60 ACT 2.5 mcg/inh inhalation aerosol 2 puffs = 5 mcg, Inhalation, Daily, j44.9, # 3 each, 3 Refills, Maintenance, 04/02/24 4:43:00 PM EDT,Aerosol, [facility], Partial fill upon patient request if the prescription is for a schedule II opioid drug., 163.4, cm, 03/25/24 12:56:00 EDT, Height, 90.4, kg, 03/25/24 12:56:00 EDT, Dry Weight Start Date: 04/02/24 Status: Ordered Quantity: 3.0 Unit: each Repeat number: 4 spironolactone 25 mg oral tablet 25 mg, 1, tablet, By Mouth, Daily, Refills 0, Maintenance, 10/12/22 12:33:00 PM EST, Partial fill upon patient request if the prescription is for a schedule II opioid drug. Start Date: 10/12/22 Status: Ordered Repeat number: 1 Vitamin D3 Vitamin D3, By Mouth, 0 Refills, Maintenance, 2 a day, 12/07/21 9:54:00 AM EST Start Date: 12/07/21 Status: Ordered Repeat number: 1 Vitamin D3 1000 intl units oral capsule 2 capsules, By Mouth, Daily, 0 Refills, Maintenance, 11/14/24 3:02:00 PM EST, Partial fill upon patient request if the prescription is for a schedule II opioid drug. Start Date: 11/14/24 Status: Ordered Repeat number: 1 Vitamin D3 2000 intl units oral tablet 1 tablet = 2,000 International_Units, By Mouth, Daily, # 100 capsule, 2 Refills, Maintenance, 01/17/20 4:40:00 PM EST, [facility], 170, cm, 01/17/20 14:27:00 EST, Height, 97.1, kg, 11/27/19 5:24:00 EST, Dry Weight Start Date: 01/17/20 Status: Ordered Quantity: 100.0 Unit: capsule Repeat number: 3 Problem List Condition Confirmation Course Effective Dates Status H ealth Status Informant Acute sciatica Confirmed Active Bursitis of hip Confirmed Active Chronic bronchitis Confirmed Active CKD (chronic kidney disease), stage III Confirmed Active Difficulty speaking Confirmed Active CHF (congestive heart failure) Confirmed Active Constipation Confirmed Active Disorder of bone and articular cartilage Confirmed Active Diverticular disease Confirmed Active Diverticulitis Confirmed Active COPD with chronic bronchitis Confirmed Active GERD (gastroesophageal reflux disease) Confirmed Active History of breast cancer in adulthood Confirmed Active Hyperlipidemia Confirmed Active Hypertension Confirmed Active 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 Low back pain Confirmed Active Numerous moles Confirmed Active Nodular goiter Confirmed Active Obese class I Confirmed Active OA (osteoarthritis) of knee Confirmed Active Osteoporosis Confirmed Active Pain in thoracic spine Confirmed Active Pre-op exam Confirmed Active Prediabetes Confirmed Active Emphysema, unspecified Confirmed Active Pain, joint, shoulder Confirmed Active Spinal stenosis of lumbar region Confirmed Active Thyroid nodule Confirmed Active Bursitis, trochanteric Confirmed Active Vitamin D deficiency Confirmed Active Social History Social History Type Response Smoking Status Former smoker, quit more than 30 days ago entered on: 03/12/24 Sex Sex Representation Female (finding) Implantable Device List Procedure Provider Procedure Date Device Type Site Open Reduction Internal Fixation Distal Jorge Gregorio MD 04/20/22 Unknown Wrist Left Device Identifier Serial Number Lot or Batch Number Manufacturing Date Expiration Date Distinct Identification Code MRI Safety Implantable Status Assigning Authority Unknown Unknown 13 Unknown 02/18/24 Unknown Unknown Active Unkn own Unknown Unknown 13 Unknown 02/18/24 Unknown Unknown Active Unkn own Unknown Unknown 13 Unknown 02/18/24 Unknown Unknown Active Unkn own Unknown Unknown 13 Unknown 02/18/24 Unknown Unknown Active Unkn own Unknown Unknown 13 Unknown 02/18/24 Unknown Unknown Active Unkn own Unknown Unknown 13 Unknown 02/18/24 Unknown Unknown Active Unkn own Unknown Unknown 13 Unknown 02/18/24 Unknown Unknown Active Unkn own Patient Care team information Care Team Personnel Name: Kaylee De La Rosa RN Position: [facility] RN Member Role: Primary Care Nurse Name: Anabell Shultz RN Position: [facility] AMB Nurse Member Role: Primary Care Nurse Name: Mariann Arriaga RN Position: [facility] RN Member Role: Primary Care Nurse Name: Sabas Brown MD Position: [facility] Renal MD Member Role: Lifetime Consulting Physician Address: [address] [place] [address] [address] [place] [address]- Telecom: Name: Vince Stoll MD Position: [facility] Renal MD Member Role: Lifetime Consulting Physician Address: [address] [place] [address] [address] [facility] [place] [address]- [place] Telecom: Name: Amanda Kelsey Position: [facility] Onco RN Member Role: Primary Care Nurse Name: Kerrie Dhaliwal RN Position: [facility] RN Supv Member Role: Primary Care Nurse Name: Sandi Wise RN Position: S RN Member Role: Primary Care Nurse Name: Fermin Colón MD Position: [facility] Physician - Primary Care Member Role: PCP Address: [address] [place] [address]- Telecom: Name: Ambrosio Osborn RN Position: [facility] RN Member Role: Primary Care Nurse Name: Patricia Whittington RN Position: [facility] RN Member Role: Primary Care Nurse Care Team Related Persons Name: NEDA TOBIN Name: JUSTIN GONSALEZ Insurance Providers Guarantor name: STEFANIE TOBIN Health Plan Information #: 1 Payer: MEDICARE PART B OUTPT Member Number: NA Policy Number: NA Group Number: NA Health Plan Information #: 2 Payer: FOR LIFE MCR A ONLY Member Number: NA Policy Number: NA Group Number: NA
--- OUTSIDE RECORDS SUMMARY | 2025-02-25 18:40 | XMS_ITS | Patient Health Record ---
Author Organization [facility] Address [address] [place] [address] Care Team Providers Care Import/Export Administrator Name Role Phone Fermin Colón MD Primary Care Provider Patricia Gtz Unavailable [phone] Reason For Referral No Information Plan Of Treatment No Information Insurance Providers Payer Name Payer Address Payer Phone Subscriber Number Group Number Insured Name Patient Relationship to Insured Coverage Start Date Coverage End Date Medicare National Govt Sv[employer] [address] [place] [phone] [id number] Hannah Cameron Self - patient is the insured for Life [address] [place] [address] [id number] Sesar Camerno Spouse - patient is the spouse of the insured
--- OUTSIDE RECORDS SUMMARY | 2025-02-25 18:40 | XMS_ITS | Clinical Summary ---
Author Organization [facility] Address [address] [address] Phone Care Team Providers Care Butcher Fish Name Role Phone Fermin Colón MD Primary Care Provider [phone] Allergies Active Allergy Reactions Criticality Noted Date Comments Amlodipine Other (see comments) 11/05/2021 [place]go Tar Extract 03/30/2018 Terbinafine Other (see comments) 11/05/2021 Medications Albuterol Sulfate (ProAir RespiClick) 108 (90 Base) MCG/ACT aerosol powder as directed Active aspirin (ST EZEKIEL) 81 MG EC tablet Take 1 tablet by mouth 1 (one) time each day Active metoprolol succinate XL (TOPROL XL) 25 MG 24 hr tablet 1 Active tiotropium (Spiriva HandiHaler) 18 MCG per inhalation capsule Spiriva with HandiHaler 18 mcg and inhalation capsules Active Anoro Ellipta 62.5-25 MCG/INH aerosol powder 1 Active spironolactone (ALDACTONE) 25 MG tablet TAKE 1 TABLET DAILY 90 tablet 3 4 Active furosemide (LASIX) 20 MG tablet Take two tabs (40 mg) in the am and one tablet in the pm (20 mg) 270 tablet 3 5 Active Active Problems Problem Noted Date Diagnosed Date Congestive heart failure 10/01/2023 023 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 023 Intraductal carcinoma of breast 10/01/2023 10/01/2023 Essential hypertension 11/05/2021 Hyponatremia 11/05/2021 Localized edema 11/05/2021 Chronic back pain 11/05/2021 Severe chronic obstructive pulmonary disease 12/ 08/2021 Vitamin D deficiency 11/05/2021 Chronic kidney disease stage 2 05/03/2019 Osteopenia 07/11/2018 Abdominal aortic aneurysm 03/25/2014 Gastroesophageal reflux disease 03/04/2014 Dyslipidemia 03/04/2014 Resolved Problems Problem Noted Date Diagnosed Date Resolved Date Acute sciatica 11/05/2021 10/01/2022 Constipation 11/05/2021 10/01/2022 Diverticular disease 11/05/2021 022 Encounters Date Type Department Care Team Description 01/13/2025 11:20 AM EST Office Visit [facility] P.. [address] [address] Vince Polanco MD Hyponatremia (Primary Dx); Congestive heart failure, not otherwise specified (HCC); Dyslipidemia; Essential hypertension; Localized edema; Vitamin D deficiency, not otherwise specified from Last 3 Months Immunizations Name Administration Dates Next Due Influenza (IM) Preservative Free 09/02/2014 Influenza, Unspecified 08/11/2009 Pneumococcal Conjugate 13-Valent 09/09/2016,07/28 Pneumococcal Polysaccharide 07/14/2008 Td 08/06/2010,07/03/2000 Family History Medical History Relation Comments Diabetes Child daughter Heart disease Father Hypertension Father Cancer Sibling sister breast ca Relation Status Comments Child Father Mother Sibling Social History Tobacco Use Types Packs/Day Years Used Date Smoking Tobacco: Former Comments:Smoking History Inf o:Some days Alcohol Use Standard Drinks/Week Comments Yes 0 (1 standard drink = 0.6 oz pure alcohol) Alcoholic Drinks/day: Occasional social drink Comments Unknown Sex and Gender Information Value Date Recorded Sex Assigned at Not on file Legal Sex Female 4:45 PM EST Gender Identity Not on file Sexual Orientation Not on file Last Filed Vital Signs Vital Sign Reading Time Taken Comments Blood Pressure 144/72 01/13/2025 11:16 AM EST Pulse 88 01/13/2025 11:16 AM EST Temperature - - Respiratory Rate - - Oxygen Saturation 87% 10/03/2023 11:48 AM EST 4Liters Inhaled Oxygen Concentration - - Weight 89.4 kg (197 lb 3.2 oz) 01/13/2025 11:16 AM EST Height 167.6 cm (5' 6 ) 01/13/2025 11:16 AM EST Body Mass Index 31.83 01/13/2025 11:16 AM EST Plan of Treatment Upcoming Encounters Date Type Department Care Team (Late st Contact Info) Description 01/13/2026 11:40 AM EST Office Visit [facility] [address] [phone] Vince Polanco MD [address] [address] Health Maintenance Due Date Last Done Comments Influenza Vaccine (#1) 2024 4, 09/02/2014, 08/11/2009, Additional history exists Pneumococcal Vaccine: 65+ Years Completed 09/09/2016, 08/11/2015, 07/14/2008, Additional history exists Hepatitis B Vaccine Aged Out No longe r eligible based on patient's age to complete this topic Insurance MEDICARE [facility] [place] MEDICARE [facility] [place] Care Teams Butcher Fish Relationship Specialty Start Date End Date Fermin Colón MD [facility] [address] [place] [phone] PCP - General Family Medicine 10/04/22
--- OUTSIDE RECORDS SUMMARY | 2025-02-25 18:40 | XMS_ITS ---
Author Organization [facility] Address [address] [place] [address] Care Team Providers Care Printing Table Hand Name Role Phone Eldon CARUSO, Fermin Primary Care Provider Unava Patricia Motley Unavailable [phone] REASON FOR VISIT LOAN COUNSELOR Encounters Encounter Location Date Provider Diagnosis [facility] [address] [place] [address] 10/12/2023 Patricia Stout Plan Of Treatment No Information Progress Notes * Hannah TOBIN EDOB:1935 (87 yo F)Acc No.[id number]:10/12/2023 Patient:?Hannah Tobin :1935???Age:87 Y???Sex:Female Address:[address] [address] * true * Date:? Generated for Connori asha/Eileen/eTransmitting on:?02/25/2025 06:39 PM EDT
--- OUTSIDE RECORDS SUMMARY | 2025-02-25 18:40 | XMS_ITS | Continuity of Care Document ---
Author Organization [facility] Address [address] [place] [address]- Care Team Providers Care Dough Panner Name Role Phone Eldon CARUSO, Fermin Rinaldi [id number]25 [facility] [address] [place] [address]- Encounter Type: Triage Allergies, Adverse Reactions, Alerts [...] Refills, Maintenance, 11/16/24 6:05:00 AM EST, Aerosol, [id number], Partial fill upon patient request if the [...] 8:08:00 AM EDT, Route to Pharmacy Electronically, [facility], 170, cm, 05/18/21 14:27:00 EDT, [...] 2:16:00 PM EST, Route to Pharmacy Electronically, [facility], 163.4, cm, 11/14/24 15:02:00 EST, Height, 85.5, kg, 09/23/24 12:57:00 EDT, Dry Weight Start Date: 12/10/24 Status: Ordered Quantity: 90.0 Unit: tablet Repeat number: 1 ProAir HFA 90 mcg/inh inhalation aerosol with adapter 180 mcg, 2, puffs, Inhalation, Every 4 hours, PRN, # 8.5 Gm, Refills 5, Tot. Refills 5, Maintenance, 11/30/22 5:46:00 PM EST, Inhaler, Route to Pharmacy Electronically, [id number], [facility], 164.5, cm, 10/12/22 10:45:00 EST, [...] Type Site Open Reduction Internal Fixation Distal Jg CARUSO, Jorge 04/20/22 Unknown Wrist Left Device Identifier Serial [...] Name: Kaylee De La Rosa RN Position: [facility] RN Member Role: Primary Care Nurse Name: Anabell Shultz RN Position: [facility] AMB Nurse Member Role: Primary Care Nurse Name: Mariann Arriaga RN Position: [facility] RN Member Role: Primary Care Nurse Name: Sabas Brown MD Position: [facility] Renal MD Member Role: Lifetime Consulting Physician Address: [address] [place] [address] [address] [facility] [address]- Telecom: Name: Vince Stoll MD Position: [facility] Renal MD Member Role: Lifetime Consulting Physician Address: [address] [place] [address] [address] [facility] [place] [address]- Telecom: Name: Amnada Kelsey Position: [facility] Onco RN Member Role: Primary Care Nurse Name: Kerrie Dhaliwal RN Position: [facility] RN Supv Member Role: Primary Care Nurse Name: Sandi Wise RN Position: S RN Member Role: Primary Care Nurse Name: Fermin Colón MD Position: [facility] Physician - Primary Care Member Role: PCP Address: [address] [place] [address] Telecom: Name: Ambrosio Osborn RN Position: [facility] RN Member Role: Primary Care Nurse Name: Patricia Whittington RN Position: [facility] RN Member Role: Primary Care Nurse Care [...]
--- OUTSIDE RECORDS SUMMARY | 2025-02-25 18:40 | XMS_ITS ---
Author Organization [facility] Address [address] [place] [address] Care Team Providers Care Egg Processing Supervisor Name Role Phone Eldon CARUSO, Fermin Primary Care Provider UnaPatricia Alamo Unavailable [phone] Encounters Encounter Location Date Provider Diagnosis [facility] [address] [place] [address] 12/19/2023 Patricia Stout Plan Of Treatment No Information Progress Notes * Hannah TOBIN EDOB:1935 (89 yo F)Acc No.[id number]:12/19/2023 Progress Notes Patient:?Hannah TOBIN Provider:?Patricia Stout DPM :1935???Age:88 Y???Sex:Female D ate:12/19/2023 Address:[facility] [phone] Pcp:Fermin Colón MD Subjective: * Chief Complaints: * ??? * Medical History:? Objective: * Vitals:? Assessment: Plan: * Treatment: * Images: * The named appointment provid er may or may not be the originator of this progress note, and it is not deemed complete until electronically signed by the appointment provider. Sign off status: Pending * Provider:?Patricia Stout DPM Date:? Generated for Sunny barry/Eileen/eTransmitting on:?02/25/2025 06:39 PM EDT
[2025-02-26 09:22] LABS: Glucose, Whole Blood 252 mg/dL (60-115)
== END 2025-02-25 18:29 | disposition expired ==
PROVIDERS: Emergency Provider Emergency Medicine; PCP Internal Medicine
DX: I46.9 Cardiac arrest, cause unspecified (principal); R06.02 Shortness of breath; I45.10 Unspecified right bundle-branch block; J44.9 Chronic obstructive pulmonary disease, unspecified; I50.9 Heart failure, unspecified
CPT/HCPCS: 80048; 80076; 82803; 82947; 83690; 83735; 83880; 84484; 85007; 85025; 85027; 85610; 93005; 96374; 96375; 99283; 99285; J0171

== ENCOUNTER → 2025-02-25 15:27 | Outpatient (BNV) | payer MEDICARE, OTHER, SELFPAY | PROVIDERS: Emergency Provider Emergency Medicine; PCP Internal Medicine; Visit Provider Internal Medicine | DX: I48.91 Unspecified atrial fibrillation (principal); I45.10 Unspecified right bundle-branch block | CPT/HCPCS: 93010 ==